=== PATIENT | female | born 1950 | race Caucasian/White ===

== ENCOUNTER 2016-09-12 15:43 | Inpatient (IN) | payer MEDICAID, OTHER ==
[~2016-09-12] VITALS: Ht 149.9 cm; Wt 51.0 kg
[~2016-09-12 15:43] MED LIST: BENA5TAB2 PO; COU5 PO; DIGO125T PO; DILT120C77 PO; FURO20TA3 PO; LANT3I SC
[2016-09-12] MEDS ORDERED: SOD CHLORIDE 0.9% 500 ML IV STA (16:06)
--- NOTE | 2016-09-12 16:08 | ERA ---
ER Documentation Chief Complaint Date/Time DATE: 09/12/16 TIME: 16:07 Chief Complaint WEAKNESS AND SOB FOR THE PAST FEW DAYS. NO CHEST PAIN. HPI This 66-year-old female presents that she has been weak and short of breath for 3 days. States that the weakness is generalized across her whole body with no focal weakness. She has had chest discomfort without actual pain. She has a history of A. fib and is on Eliquis and carvedilol which she has been taking regularly including today. Also notes that her sugars have been very high and difficult to control with the medication she has been on. ROS All systems reviewed and are negative except as per history of present illness. Medications Home Meds Active Scripts Digoxin* (Digoxin*) 0.125 Mg Tab, 0.125 MG PO DAILY@13 for 30 Days, TAB Prov:KATHERINE TERRY 11/12/13 Reported Medications [Basaglar Insulin] No Conflict Check, 22 UNIT SQ QHS 09/12/16 Apixaban* (Eliquis*) 5 Mg Tablet, 5 MG PO DAILY, TAB 09/12/16 Carvedilol* (Carvedilol*) 3.125 Mg Tablet, 3.125 MG PO DAILY, #60 TAB 09/12/16 Losartan Potassium* (Losartan Potassium*) 25 Mg Tablet, 25 MG PO DAILY, TAB 09/12/16 Sitagliptin* (Januvia*) 100 Mg Tablet, 100 MG PO DAILY, #30 TAB 09/12/16 Discontinued Reported Medications Insulin Glargine* (Lantus*) 100 Unit/Ml Soln, 20 UNIT SC HS, EA 11/10/13 Benazepril Hcl* (Benazepril Hcl*) 5 Mg Tablet, 5 MG PO DAILY, TAB 11/10/13 Furosemide* (Furosemide*) 20 Mg Tablet, 20 MG PO DAILY, TAB 11/10/13 Warfarin Sod (Coumadin) 5 Mg Tablet, 5 MG PO DAILY, TAB 11/10/13 Discontinued Scripts Diltiazem Hcl* (Cardizem CD*) 120 Mg Cap.sr.24h, 120 MG PO BID for 60 Days, CAP Prov:KATHERINE TERRY 11/12/13 Allergies Allergies: Coded Allergies: No Known Drug Allergies (Verified Allergy, Unknown, 09/12/16) PMhx/Soc History of Surgery: Yes (REMOVED GALLBLADDER) Anesthesia Reaction: No Hx Neurological Disorder: No Hx Respiratory Disorders: No Hx Cardiac Disorders: Yes (A FIB) Hx Psychiatric Problems: No Hx Miscellaneous Medical Probl: No Hx Alcohol Use: No Hx Substance Use: No Hx Tobacco Use: No Physical Exam Vitals Vital Signs Date Time Temp Pulse Resp B/P Pulse Ox O2 Delivery O2 Flow Rate FiO2 09/12/16 18:30 72 20 99/82 100 Room Air 09/12/16 17:52 61 16 83/65 98 Nasal Cannula 2.0 09/12/16 16:41 115 12 106/86 Nasal Cannula 2.0 09/12/16 16:05 Nasal Cannula 2 09/12/16 15:45 97.2 131 20 140/102 98 Physical Exam Const: [] Mild to moderate distress. Head: Atraumatic Eyes: Normal Conjunctiva ENT: Normal External Ears, Nose and Mouth. Neck: Full range of motion..~ No meningismus. Resp: Clear to auscultation bilaterally Cardio: Irregularly irregular market tachycardia, no murmurs Abd: Soft, non tender, non distended. Normal bowel sounds Skin: No petechiae or rashes Back: No midline or flank tenderness Ext: No cyanosis, or edema, distal pulses intact all 4 extremities Neur: Awake and alert and oriented 3, cranial nerves II through XII intact, no focal deficits Psych: Normal Mood and Affect Result Diagram: 09/12/16 1625 09/12/16 1625 Results 24 hrs Laboratory Tests Test 09/12/16 16:25 09/12/16 18:10 09/12/16 18:15 White Blood Count 9.010^3/ul Red Blood Count 4.3710^6/ul Hemoglobin 13.6g/dl Hematocrit 39.8% Mean Corpuscular Volume 91.1fl Mean Corpuscular Hemoglobin 31.1pg Mean Corpuscular Hemoglobin Concent 34.2g/dl Red Cell Distribution Width 13.0% Platelet Count 78631^3/UL Mean Platelet Volume 9.4fl Neutrophils % 71.9% Lymphocytes % 20.7% Monocytes % 4.6% Eosinophils % 1.8% Basophils % 0.6% Nucleated Red Blood Cells % 0.0/100WBC Neutrophils # 6.510^3/ul Lymphocytes # 1.910^3/ul Monocytes # 0.410^3/ul Eosinophils # 0.210^3/ul Basophils # 0.110^3/ul Nucleated Red Blood Cells # 0.010^3/ul Prothrombin Time 14.7Sec Prothrombin Time Ratio 1.1 INR International Normalized Ratio 1.15 Activated Partial Thromboplast Time 27.2Sec Sodium Level 141mmol/L Potassium Level 4.2mmol/L Chloride Level 96mmol/L Carbon Dioxide Level 28mmol/L Anion Gap 21 Blood Urea Nitrogen 16mg/dl Creatinine 0.80mg/dl Glucose Level 369mg/dl Calcium Level 9.6mg/dl Troponin I < 0.012ng/ml B-Type Natriuretic Peptide 819PG/ML Urine Color STRAW Urine Clarity CLEAR Urine pH 7.0 Urine Specific [place] 1.011 Urine Ketones NEGATIVEmg/dL Urine Nitrite NEGATIVEmg/dL Urine Bilirubin NEGATIVEmg/dL Urine Urobilinogen NEGATIVEmg/dL Urine Leukocyte Esterase NEGATIVELeu/ul Urine Hemoglobin NEGATIVEmg/dL Urine Glucose 3+mg/dL Urine Total Protein NEGATIVEmg/dl Bedside Urine pH (LAB) 7.0 Bedside Urine Protein (LAB) Negative Bedside Urine Glucose (UA) 0.50% Bedside Urine Ketones (LAB) Negative Bedside Urine Blood Negative Bedside Urine Nitrite (LAB) Negative Bedside Urine Leukocyte Esterase (L Negative Current Medications Medications (Trade) Dose Ordered Sig/[place] Route PRN Reason Start Time Stop Time Status Last Admin Dose Admin Sodium Chloride (NS) 500 ml @ 500 mls/hr Q1H STAT IV 09/12/16 16:06 09/12/16 17:05 DC 09/12/16 16:45 Diltiazem HCl (Cardizem Iv) 20 mg ONCE ONCE IV 09/12/16 16:30 09/12/16 16:31 DC 09/12/16 16:46 Metoprolol Tartrate (Lopressor) 5 mg ONCE ONCE IV 09/12/16 16:30 09/12/16 16:31 DC 09/12/16 16:46 Ondansetron HCl (Zofran Inj) 4 mg ER BRIDGE PRN IV NAUSEA AND/OR VOMITING 09/12/16 18:30 09/13/16 18:29 Acetaminophen 650 mg 650 mg ER BRIDGE PRN PO MILD PAIN/FEVER 09/12/16 18:30 09/13/16 18:29 Sodium Chloride (NS) 1,000 ml @ 1,000 mls/hr Q1H ONCE IV 09/12/16 18:30 09/12/16 19:29 DC 09/12/16 18:00 Metoprolol Tartrate (Lopressor) 5 mg Q4H PRN IV HR>110 Hold SBP<100 09/12/16 19:30 Metoprolol Tartrate (Lopressor) 25 mg BID PO 09/12/16 21:00 Digoxin (Digoxin) 0.125 mg DAILY@13 PO 09/13/16 13:00 Procedures/MDM A. fib with RVR in spite of appropriate medications and uncontrolled diabetic hyperglycemia. She was given normal saline as well as Cardizem and metoprolol IV. This controlled the patient's heart rate. She did have mild transient hypotension afterwards. Was given additional IV fluid and blood pressure stabilized. She was also given Zofran for nausea. She is being admitted to telemetry. I spoke with Dr. Campoverde will be admitting EKG interpretation: A. fib with RVR in 123, normal axis, no ST or T-wave changes concerning for acute ischemia. air sampling and monitoring interpretation: A. fib with RVR followed by rate controlled A. fib. No other arrhythmias Chest x-ray interpretation: I see no acute process. No infiltrate, no pulmonary edema, no pneumothorax, no fractures Critical care time 44 minutes: This includes treatment of unstable vital signs, A. fib with RVR, very careful fluid administration, use of vasoactive medications Cardizem and metoprolol IV, all visits patient's bedside to reassess cardio dynamic status, chart review, discussion with patient admitting doctor and family. This does not include billable procedures Departure Diagnosis: Primary Impression: Atrial fibrillation with RVR Additional Impressions: Acute weakness Uncontrolled diabetes mellitus with hyperglycemia Condition: Serious GENARO CURRY DO Sep 12, 2016 16:08
[2016-09-12] MEDS ORDERED: METOPROLOL 5 MG INJ IV ONE (16:30)
[2016-09-12] MEDS ORDERED: DILTIAZEM 25 MG INJ IV ONE (16:30)
[2016-09-12 16:33] LABS: ADD SCAN DIFF NO
[2016-09-12 16:36] LABS: BASOPHIL # 0.1 10^3/ul (0.0-0.1); BASOPHILS % 0.6 % (0.0-2.0); EOSINOPHILS # 0.2 10^3/ul (0.0-0.5); EOSINOPHILS % 1.8 % (0.0-7.0); HEMATOCRIT 39.8 % (37.0-47.0); HEMOGLOBIN 13.6 g/dl (12.0-16.0); LYMPHOCYTES # 1.9 10^3/ul (0.8-2.9); LYMPHOCYTES % 20.7 % (15.0-51.0); MEAN CORPUSCULAR HEMOGLOBIN 31.1 pg (29.0-33.0); MEAN CORPUSCULAR HGB CONC 34.2 g/dl (32.0-37.0); MEAN CORPUSCULAR VOLUME 91.1 fl (82.0-101.0); MEAN PLATELET VOLUME 9.4 fl (7.4-10.4); MONOCYTE # 0.4 10^3/ul (0.3-0.9); MONOCYTES % 4.6 % (0.0-11.0); NEUTROPHIL # 6.5 10^3/ul (1.6-7.5); NEUTROPHILS % 71.9 % (39.0-77.0); PLATELET COUNT 254 10^3/UL (140-415); RED BLOOD COUNT 4.37 10^6/ul (4.20-5.40)
--- NOTE | 2016-09-12 16:47 | RADRPT ---
PROCEDURE: Chest 1 views. CLINICAL INDICATION: Chest pain TECHNIQUE: AP views of the chest was obtained. COMPARISON: November 11, 2013 FINDINGS: The heart is large. The lungs are hyperexpanded. Subsegmental atelectasis is seen in the bilateral lower lobes. Chronic mild interstitial prominence is seen in both lungs. Osseous structures are in tact. IMPRESSION: Cardiomegaly . Hyperexpanded lungs with chronic mild interstitial prominence in both lungs. Findings could reflect COPD. Subsegmental atelectasis in the bilateral lower lobes RPTAT: AA .Asher Borges MD, Date Time Electronically viewed and signed by .Asher Borges MD, on 09/12/2016 16:47 .P/
[2016-09-12 16:51] LABS: INR 1.15; PROTIME 14.7 Sec (12.2-14.2); PT RATIO 1.1
[2016-09-12 16:52] LABS: PARTIAL THROMBOPLASTIN TIME 27.2 Sec (25.0-35.0)
[2016-09-12 16:54] LABS: ANION GAP 21 (8-16); BLOOD UREA NITROGEN 16 mg/dl (7-20); CALCIUM 9.6 mg/dl (8.4-10.2); CARBON DIOXIDE 28 mmol/L (21-31); CHLORIDE 96 mmol/L (97-110); GLUCOSE 369 mg/dl (70-220); POTASSIUM 4.2 mmol/L (3.5-5.1); SODIUM 141 mmol/L (135-144)
[2016-09-12 17:08] LABS: B-TYPE NATRIURETIC PEPTIDE 819 PG/ML (0-125)
[2016-09-12 17:26] LABS: TROPONIN-I < 0.012 ng/ml (0.00-0.12)
[2016-09-12] MEDS ORDERED: SITA100T8 PO (17:54)
[2016-09-12] MEDS ORDERED: LOSA25TA5 PO (17:55)
[2016-09-12] MEDS ORDERED: CARV3.1260 PO (17:55)
[2016-09-12] MEDS ORDERED: APIX5TAB PO (17:56)
[2016-09-12] MEDS ORDERED: BASAGLAR INSULIN SQ (17:57)
[2016-09-12 18:11] LABS: URINE BLOOD (Dip) POC Negative (NEGATIVE)
[2016-09-12 18:24] LABS: ADD UMIC NO; UR ASCORBIC ACID NEGATIVE (NEGATIVE); UR BILIRUBIN (Dip) NEGATIVE (NEGATIVE); UR BLOOD (Dip) NEGATIVE (NEGATIVE); UR CLARITY CLEAR (CLEAR); UR COLOR STRAW (YELLOW); UR GLUCOSE (Dip) 3+ mg/dL (NEGATIVE); UR KETONES (Dip) NEGATIVE (NEGATIVE); UR LEUKOCYTE ESTERASE (Dip) NEGATIVE Leu/ul (NEGATIVE); UR NITRITE (Dip) NEGATIVE (NEGATIVE); UR SPECIFIC GRAVITY (Dip) 1.011 (1.003-1.030); UR TOTAL PROTEIN (Dip) NEGATIVE (NEGATIVE); UR UROBILINOGEN (Dip) NEGATIVE (NEGATIVE)
[2016-09-12] MEDS ORDERED: ACETAMINOPHEN 325 MG TAB PO PRN (18:30)
[2016-09-12] MEDS ORDERED: SOD CHLORIDE 0.9% 1,000 ML IV ONE (18:30)
[2016-09-12] MEDS ORDERED: ONDANSETRON 4 MG INJ IV PRN (18:30)
[2016-09-12] MEDS ORDERED: METOPROLOL 5 MG INJ IV PRN (19:30)
[2016-09-12] MEDS: METOPROLOL 25 MG TAB PO SCH (21:00)
[2016-09-12] MEDS ORDERED: ACETAMINOPHEN 500 MG TAB PO PRN (23:30)
[2016-09-12 23:45] LABS: CK-MB 1.46 ng/ml (0.0-2.4); TROPONIN-I 0.016 ng/ml (0.00-0.12)
[2016-09-12] MEDS ORDERED: GLUCAGON 1 MG INJ IM PRN (23:45)
[2016-09-12] MEDS ORDERED: GLUCOSE GEL 15 GRAM TUBE BUCCAL PRN (23:45)
[2016-09-12] MEDS ORDERED: DEXTROSE 50% 50 ML SYRINGE IV PRN ×2 (23:45)
[2016-09-12] MEDS ORDERED: GLUCOSE GEL 15 GRAM TUBE PO PRN ×2 (23:45)
[2016-09-13] VITALS (10 sets, daily range): BP systolic 106–179; BP diastolic 68–115; PULSE 77–140; RESP 14–18; Ht 149.9 cm; Wt 51.0 kg
[2016-09-13] MEDS: APIXABAN 5 MG TABLET PO SCH ×3 (01:12→20:54)
[2016-09-13] MEDS: ACCU-CHEK XX SCH (01:39)
[2016-09-13] MEDS ORDERED: ACCU-CHEK XX SCH ×2 (02:00)
[2016-09-13 06:06] LABS: CALCIUM 9.2 mg/dl (8.4-10.2); CREATININE 0.6 mg/dl (0.44-1.00); POTASSIUM 3.8 mmol/L (3.5-5.1)
[2016-09-13 06:07] LABS: CHOL/HDL RATIO 3.4 RATIO
[2016-09-13 06:11] LABS: CREATINE KINASE 54 IU/L (23-200)
[2016-09-13 06:18] LABS: CK-MB 1.25 ng/ml (0.0-2.4)
[2016-09-13 06:44] LABS: TROPONIN-I < 0.012 ng/ml (0.00-0.12)
[2016-09-13] MEDS ORDERED: INSULIN GLARGINE [LANtus] 3 ML PEN SC SCH (08:00)
[2016-09-13] MEDS: METOPROLOL 25 MG TAB PO SCH ×2 (09:00→09:20)
[2016-09-13] MEDS ORDERED: LOSARTAN 25 MG TAB PO SCH ×2 (09:00→13:30)
[2016-09-13] MEDS ORDERED: NON-FORMULARY/PATIENT OWN MED (Sitagliptin* (Januvia*) 100 MG) PO SCH (09:00)
[2016-09-13] MEDS: INSULIN ASPART [NOVOLOG] 3 ML PEN SC SCH ×5 (09:19→20:54)
[2016-09-13] MEDS: LINAGLIPTIN 5 MG TABLET PO SCH (09:21)
[2016-09-13] MEDS: DIGOXIN 0.125 MG TAB PO SCH (13:15)
[2016-09-13] MEDS ORDERED: FUROSEMIDE 40 MG INJ IV SCH (13:30)
[2016-09-13] MEDS: FUROSEMIDE 40 MG INJ IV SCH (14:12)
--- NOTE | 2016-09-13 16:10 | CONS ---
Date/Time of Note Date/Time of Note DATE: 09/13/16 TIME: 16:05 Assessment/Plan Assessment/Plan Chief Complaint/Hosp Course IMP: 1.AF- with some recurrent RVR. Now improved on BB 2.abnl ecg-negative trop x 3 3.sob 4.DM with hyperglycemia 5.HTN 6.HL Recc: -Tele -serial ecg's -Continue BB -Give IVP digoxin additional and contnue po digoxin -Continue lasix and follow volume status -Will f/u echo -losartan as tolerted only -ongoing adjustment of insulin therapy -Continue eliqus Problems: Consultation Date/Type/Reason Admit Date/Time Sep 12, 2016 at 18:08 Initial Consult Date 09/12/2016 Type of Consultation: cardiology Reason for Consultation AF Referring Provider: NIGHAT HALE MD Exam/Review of Systems Vital Signs Vitals Vital Signs Date Time Temp Pulse Resp B/P Pulse Ox O2 Delivery O2 Flow Rate FiO2 09/13/16 16:01 91 09/13/16 15:30 18 116/77 09/13/16 11:57 98.6 Room Air 09/13/16 11:19 100 09/13/16 06:03 2.0 Intake and Output 09/12/16 09/12/16 09/13/16 15:00 23:00 07:00 Intake Total 500 ml Balance 500 ml Exam Review of Systems: CONSTITUTIONAL: No fevers, chills. PULMONARY: No sob CARDIOVASCULAR: No chest pain/palpitations GASTROINTESTINAL: No nausea/vomiting. GENITOURINARY: No hematuria/dysuria. MUSCULOSKELETAL: No myagias/arthalgias. PSYCHIATRIC: The patient denies depression. NEUROLOGIC: No weakness Constitutional: alert Psych: no complaints Head: normocephalic ENMT: mucosa pink and moist Neck: jvd (8 cm water), supple Respiratory: diminished breath sounds Cardiovascular: irregular rhythm Gastrointestinal: non-tender, soft Musculoskeletal: muscle tone (normal) Extremities: edema (none) Neurological: other (No focal deficits) Results Result Diagram: 09/12/16 1625 09/13/16 0526 Results 24 hrs Laboratory Tests Test 09/12/16 16:25 09/12/16 16:50 09/12/16 18:10 09/12/16 18:15 White Blood Count 9.0 Red Blood Count 4.37 Hemoglobin 13.6 Hematocrit 39.8 Mean Corpuscular Volume 91.1 Mean Corpuscular Hemoglobin 31.1 Mean Corpuscular Hemoglobin Concent 34.2 Red Cell Distribution Width 13.0 Platelet Count 254 Mean Platelet Volume 9.4 Neutrophils % 71.9 Lymphocytes % 20.7 Monocytes % 4.6 Eosinophils % 1.8 Basophils % 0.6 Nucleated Red Blood Cells % 0.0 Neutrophils # 6.5 Lymphocytes # 1.9 Monocytes # 0.4 Eosinophils # 0.2 Basophils # 0.1 Nucleated Red Blood Cells # 0.0 Prothrombin Time 14.7 H Prothrombin Time Ratio 1.1 INR International Normalized Ratio 1.15 Activated Partial Thromboplast Time 27.2 Sodium Level 141 Potassium Level 4.2 Chloride Level 96 L Carbon Dioxide Level 28 Anion Gap 21 H Blood Urea Nitrogen 16 Creatinine 0.80 Glucose Level 369 H Calcium Level 9.6 Troponin I < 0.012 B-Type Natriuretic Peptide 819 H Thyroid Stimulating Hormone (TSH) 1.880 Digoxin Level < 0.4 L Urine Color STRAW Urine Clarity CLEAR Urine pH 7.0 Urine Specific [place] 1.011 Urine Ketones NEGATIVE Urine Nitrite NEGATIVE Urine Bilirubin NEGATIVE Urine Urobilinogen NEGATIVE Urine Leukocyte Esterase NEGATIVE Urine Hemoglobin NEGATIVE Urine Glucose 3+ H Urine Total Protein NEGATIVE Bedside Urine pH (LAB) 7.0 Bedside Urine Protein (LAB) Negative Bedside Urine Glucose (UA) 0.50% H Bedside Urine Ketones (LAB) Negative Bedside Urine Blood Negative Bedside Urine Nitrite (LAB) Negative Bedside Urine Leukocyte Esterase (L Negative Test 09/12/16 23:04 09/13/16 01:19 09/13/16 05:26 09/13/16 09:15 Creatine Kinase 93 54 Creatine Kinase Index 1.6 2.3 Creatinine Kinase MB (Mass) 1.46 1.25 Troponin I 0.016 < 0.012 Bedside Glucose 303 H 187 Sodium Level 141 Potassium Level 3.8 Chloride Level 100 Carbon Dioxide Level 29 Anion Gap 16 Blood Urea Nitrogen 13 Creatinine 0.60 Glucose Level 205 # Hemoglobin A1c 11.4 H Calcium Level 9.2 Triglycerides Level 79 Cholesterol Level 128 LDL Cholesterol, Calculated 75 HDL Cholesterol 37 Cholesterol/HDL Ratio 3.4 Test 09/13/16 12:35 Bedside Glucose 160 Medications Medications Current Medications Metoprolol Tartrate (Lopressor) 5 mg Q4H PRN IV HR>110 Hold SBP<100 Last administered on 09/13/16t 15:32; Admin Dose 5 MG; Start 09/12/16 at 19:30 Metoprolol Tartrate (Lopressor) 25 mg BID PO ; Start 09/12/16 at 21:00 Digoxin (Digoxin) 0.125 mg DAILY@13 PO Last administered on 09/13/16 13:15; Admin Dose 0.125 MG; Start 09/13/16 at 13:00 Insulin Glargine (Lantus) 25 unit DAILY@08 SC Last administered on 09/13/16 08 :28; Admin Dose 25 UNIT; Start 09/13/16 at 08:00 Diagnostic Test (Pha) (Accu-Chek) 1 ea 02 XX Last administered on 09/13/16 01: 39; Admin Dose 1 EA; Start 09/13/16 at 02:00 Acetaminophen (Tylenol Tab) 500 mg Q6 PRN PO pain; Start 09/12/16 at 23:30 Apixaban (Eliquis) 2.5 mg BID PO Last administered on 09/13/16 01:12; Admin Dose 2.5 MG; Start 09/13/16 at 00:00 Losartan Potassium (Cozaar) 25 mg DAILY PO Last administered on 09/13/16 09:20 ; Admin Dose 25 MG; Start 09/13/16 at 09:00 Miscellaneous Information 1 ea NOTE XX ; Start 09/12/16 at 23:45 Glucose (Glutose) 15 gm Q15M PRN PO DECREASED GLUCOSE; Start 09/12/16 at 23:45 Glucose (Glutose) 22.5 gm Q15M PRN PO DECREASED GLUCOSE; Start 09/12/16 at 23: 45 Dextrose (D50w Syringe) 25 ml Q15M PRN IV DECREASED GLUCOSE; Start 09/12/16 at 23:45 Dextrose (D50w Syringe) 50 ml Q15M PRN IV DECREASED GLUCOSE; Start 09/12/16 at 23:45 Glucagon (Glucagen) 1 mg Q15M PRN IM DECREASED GLUCOSE; Start 09/12/16 at 23:45 Glucose (Glutose) 15 gm Q15M PRN BUCCAL DECREASED GLUCOSE; Start 09/12/16 at 23 :45 Linagliptin (Tradjenta) 5 mg DAILY PO Last administered on 09/13/16 09:21; Admin Dose 5 MG; Start 09/13/16 at 09:00 Atorvastatin Calcium (Lipitor) 10 mg HS PO ; Start 09/13/16 at 21:00 Furosemide (Lasix) 20 mg DAILY IV Last administered on 09/13/16t 14:12; Admin Dose 20 MG; Start 09/13/16 at 13:30 CALISTA ORELLANA Sep 13, 2016 16:10
--- NOTE | 2016-09-13 17:14 | RADRPT ---
Echocardiogram Report ADDENDUM Patient Name: VERNELL BRENNER Gender: Female Date: 1950 Study Date: 13-Sep-2016 [employer] Operator: Matt Au RDCS Location: ER9 Ref. Physician: CALISTA DESAI Quality: Adequate Procedures: Transthoracic echocardiogram with complete 2D, M-Mode, and doppler examination. Indications: Congestive Heart Failure. 2D/M Mode Doppler Measurement Value Normal Ranges Measurement Value Normal Ranges LVIDd 2D 3.8 3.5 - 5.6 cm AMI Vmax 1.7 cm2 LVIDs 2D 2.5 2.1 - 4.1 cm AMI VTI 1.7 cm2 LVPWd 2D 0.8 0.6 - 1.1 cm AV Peak Oniel 1.3 m/sec IVSd 2D 0.9 0.6 - 1.1 cm AV Peak PG 6.7 mmHg AoR Diam 2D 2.2 2.0 - 3.7 cm AI Peak PG 99.5 mmHg EDV 2D 63.5 cm3 AI Peak Oniel 5.0 m/sec ESV 2D 15.0 cm3 AI PHT 461.5 msec LA Dimen 2D 3.9 2.3 - 4.0 cm LVOT Peak Oniel 0.7 m/sec LVOT Diam 2.0 cm LVOT Peak PG 1.9 mmHg MV PHT 173.7 msec MV Peak Oniel 2.6 m/sec MV Peak PG 27.3 mmHg MV Mean Oniel 1.7 m/sec MV Mean PG 12.8 mmHg MV PHT 173.7 msec MV VTI 70.1 cm MVA PHT 1.3 cm2 TR Peak Oniel 3.6 m/sec TR Peak PG 51.2 mmHg RVSP 54.0 mmHg Findings Left Ventricle: Normal left ventricular cavity size. Normal left ventricular wall thickness. Moderate global left ventricular systolic dysfunction. Ejection fraction is visually estimated at 35 %. Tissue Doppler/Mitral Doppler indices are indeterminate in this study due to the presence of atrial fibrillation. Right Ventricle: Normal right ventricular size. Normal right ventricular systolic function. Left Atrium: The left atrium is normal in size. Right Atrium: The right atrium is normal in size. Mitral Valve: Moderate mitral leaflet calcification. Moderate mitral annular calcification. Trace mitral regurgitation. Moderate mitral stenosis. Mitral valve Max Velocity 2.61 m/sec. MaxPG 27.30 mmHg. MeanPG 12.80 mmHg. Mitral Valve Area by PHT1.30 cm2. Aortic Valve: No hemodynamically significant aortic stenosis by doppler. Aortic cusps appear mildly calcified. Mild aortic valve regurgitation. Tricuspid Valve: Normal appearance of the tricuspid valve. Estimated peak PA systolic pressure 54 mmHg. There is mild tricuspid regurgitation. Pulmonic Valve: Normal pulmonic valve appearance. There is mild pulmonic regurgitation. Pericardium: Normal pericardium with no significant pericardial effusion. Aorta: Normal aortic root. IVC: Normal size and no respiratory collapse consistent with elevated right atrial pressure. Conclusions Normal left ventricular cavity size. Normal left ventricular wall thickness. Moderate global left ventricular systolic dysfunction. Ejection fraction is visually estimated at 35-40 %. Tissue Doppler/Mitral Doppler indices are indeterminate in this study due to the presence of atrial fibrillation. Moderate mitral leaflet calcification. Moderate mitral annular calcification. trace to mild mitral regurgitation. Moderate mitral stenosis. MeanPG 12.80 mmHg. Mitral Valve Area by PHT1.30 cm2. Possibly s/p prior repair. Mild aortic valve regurgitation. Estimated peak PA systolic pressure 54 mmHg. There is mild tricuspid regurgitation. There is mild pulmonic regurgitation. Electronically Signed By: Calista Desai 14-Sep-2016 15:41:59 -0700 [ADDENDUM] Patient Name: VERNELL BRENNER Study Date: 13-Sep-2016 [id number]
[2016-09-13] MEDS: DIGOXIN 500 MCG INJ IV SCH ×2 (17:25→23:26)
--- NOTE | 2016-09-13 17:37 | RADRPT ---
Vent Rate: 100 bpm RR Interval: 0 msec [place] Interval: 0 msec QRS Duration: 90 msec QT Interval: 350 msec QTC Interval: 451 msec P-R-T [place]: 0 - 71 - 68 degrees Atrial fibrillation Minimal voltage criteria for LVH, may be normal variant Nonspecific ST and T wave abnormality , probably digitalis effect Abnormal ECG Electronically Signed By: Akash Desai [id number]
[2016-09-13] MEDS: ATENOLOL 25 MG TAB PO SCH (20:53)
[2016-09-13] MEDS: ATORVASTATIN 10 MG TAB PO SCH (20:53)
[2016-09-14] VITALS (14 sets, daily range): BP systolic 80–122; BP diastolic 54–74; PULSE 60–112; RESP 15–19
[2016-09-14] MEDS: ACCU-CHEK XX SCH ×2 (02:00→23:18)
[2016-09-14] MEDS ORDERED: ACCU-CHEK XX SCH ×2 (02:00)
--- NOTE | 2016-09-14 03:43 | HP ---
DATE OF ADMISSION: 09/12/2016 CHIEF COMPLAINT: Shortness of breath. Denies weakness. HISTORY OF PRESENT ILLNESS: The patient is a 66-year-old female with history of cardiomyopathy with EF of 35-40 percent back in October 2013. The patient also history of chronic AFib, hypertension, diabetes, and dyslipidemia. The patient for the last couple of weeks has been experiencing increasing weakness and shortness of breath. Interestingly, daughter Nate reported that the symptoms were on and off but got worse in past 24 hours. The patient also noticed right leg edema. Denies any chest pain. The patient's blood sugars had also been running high and at home she reported the blood sugar was 466 and subsequently came down to 360. The patient did not have any polyuria or polydipsia. No reported headache or syncope. Patient did not have orthopnea, but did develop increasing shortness of breath with mild activities. The patient did not have any fever or chills, no paroxysmal nocturnal dyspnea, no vomiting or diarrhea. No report of bleeding of any site. The rest of the review of systems unremarkable. PAST SURGICAL HISTORY: The patient is status post cholecystectomy. FAMILY HISTORY: Father with history of diabetes. SOCIAL HISTORY: No smoking. No alcohol. PHYSICAL EXAMINATION: GENERAL APPEARANCE: Patient conscious, awake, alert and breathing comfortably at rest. VITAL SIGNS: Blood pressure 140/102, respirations 20, pulse 131, temperature 97.2, pulse ox 98 percent. HEENT: Atraumatic, normocephalic. Nonicteric. TMs normal. Oropharynx clear. NECK: Supple. No masses or thyromegaly. Neck veins are engorged. CHEST: Chest tube with diminished air entry at bases. No use of accessory muscles. CV: Irregularly regular rhythm. Variable S1. No murmur, gallop or rub. ABDOMEN: Soft, nontender. EXTREMITIES: Trace edema. No clubbing, cyanosis. NEUROLOGIC: The patient is awake, alert, fairly oriented, with no gross focal deficit. LAB DATA: Reviewed. IMPRESSION: 1. Atrial fibrillation with rapid ventricular response. 2. Cardiomyopathy. 3. Hypertension. 4. Diabetes out of control. 5. Dyslipidemia. PLAN: Patient admitted on telemetry floor. Patient will be started on beta sd and digoxin and the patient's blood pressure subsequently dropped to low 100. The patient will be started on pre-meal insulin as well as Lantus and will continue to optimize diabetic care. Will start LIDIA inhibitor and diuretics as tolerated. The patient will be started on Eliquis for chronic AFib. Cardiac consult from Dr. Desai has been obtained. Plan of care discussed with patient's daughter Nate and [id number] Geovanna. Further recommendations depending on patient's hospital course. Dictated By: Dane Campoverde MD /joo/ /Document#: [id number]
[2016-09-14 08:04] LABS: CALCIUM 9.5 mg/dl (8.4-10.2); CREATININE 0.89 mg/dl (0.44-1.00); POTASSIUM 3.9 mmol/L (3.5-5.1)
[2016-09-14] MEDS: ATENOLOL 25 MG TAB PO SCH ×2 (09:00→21:00)
[2016-09-14] MEDS: LOSARTAN 25 MG TAB PO SCH (09:00)
[2016-09-14] MEDS: INSULIN ASPART [NOVOLOG] 3 ML PEN SC SCH ×7 (09:19→20:40)
[2016-09-14] MEDS: FUROSEMIDE 40 MG INJ IV SCH (09:24)
[2016-09-14] MEDS: LINAGLIPTIN 5 MG TABLET PO SCH (09:25)
[2016-09-14] MEDS: APIXABAN 5 MG TABLET PO SCH ×2 (09:27→21:12)
[2016-09-14] MEDS: INSULIN GLARGINE [LANtus] 3 ML PEN SC SCH (09:30)
[2016-09-14] MEDS ORDERED: REGADENOSON 0.4 MG/5 ML SYG ONE (12:08)
--- NOTE | 2016-09-14 12:30 | CONS ---
Date/Time of Note Date/Time of Note DATE: 09/14/16 TIME: 12:26 Assessment/Plan Assessment/Plan Chief Complaint/Hosp Course IMP: 1.AF- with some recurrent RVR. Now improved on BB 2.abnl ecg-negative trop x 3 3.sob 4.DM with hyperglycemia 5.HTN-currently bordeerBiocontrol hotn with holding of BB 6.HL 7.Cardiomyopathy with low ef by echo this admit Recc: -Tele -serial ecg's -Continue BB as tolerated only -Contnue po digoxin -Hold lasix and follow volume status given low BP -losartan as tolerted only -ongoing adjustment of insulin therapy -Continue eliqus -lexiscan stress test today Problems: Consultation Date/Type/Reason Admit Date/Time Sep 12, 2016 at 18:08 Initial Consult Date 09/12/2016 Type of Consultation: cardiology Reason for Consultation cardiomyopathy/AF Referring Provider: NIGHAT HALE MD Exam/Review of Systems Vital Signs Vitals Vital Signs Date Time Temp Pulse Resp B/P Pulse Ox O2 Delivery O2 Flow Rate FiO2 09/14/16 11:33 97.8 85 18 80/58 100 09/14/16 00:00 Room Air 09/13/16 06:03 2.0 Intake and Output 09/13/16 09/13/16 09/14/16 15:00 23:00 07:00 Intake Total 240 ml 120 ml Balance 240 ml 120 ml Exam Review of Systems: CONSTITUTIONAL: No fevers, chills. PULMONARY: No sob CARDIOVASCULAR: No chest pain/palpitations GASTROINTESTINAL: No nausea/vomiting. GENITOURINARY: No hematuria/dysuria. MUSCULOSKELETAL: No myagias/arthalgias. PSYCHIATRIC: The patient denies depression. NEUROLOGIC: MIld generalized weakness Constitutional: alert Psych: no complaints Head: normocephalic ENMT: mucosa pink and moist Neck: jvd (8-9 cm water), supple Respiratory: diminished breath sounds (at bases/B) Cardiovascular: irregular rhythm Gastrointestinal: non-tender, soft Musculoskeletal: muscle weakness (mild generalized) Extremities: edema (none) Neurological: other (no focal deficits) Results Result Diagram: 09/12/16 1625 09/14/16 0706 Results 24 hrs Laboratory Tests Test 09/13/16 12:35 09/13/16 17:15 09/13/16 20:46 09/14/16 07:06 Bedside Glucose 160 354 H 102 Sodium Level 142 Potassium Level 3.9 Chloride Level 98 Carbon Dioxide Level 29 Anion Gap 19 H Blood Urea Nitrogen 18 Creatinine 0.89 Glucose Level 178 Calcium Level 9.5 Test 09/14/16 08:30 Bedside Glucose 196 Medications Medications Current Medications Metoprolol Tartrate (Lopressor) 5 mg Q4H PRN IV HR>110 Hold SBP<100 Last administered on 09/13/16 15:32; Admin Dose 5 MG; Start 09/12/16 at 19:30 Digoxin (Digoxin) 0.125 mg DAILY@13 PO Last administered on 09/13/16 13:15; Admin Dose 0.125 MG; Start 09/13/16 at 13:00 Diagnostic Test (Pha) (Accu-Chek) 1 ea 02 XX Last administered on 09/13/16 01: 39; Admin Dose 1 EA; Start 09/13/16 at 02:00 Acetaminophen (Tylenol Tab) 500 mg Q6 PRN PO pain Last administered on 20:54; Admin Dose 500 MG; Start 09/12/16 at 23:30 Apixaban (Eliquis) 2.5 mg BID PO Last administered on 09/14/16 09:27; Admin Dose 2.5 MG; Start 09/13/16 at 00:00 Miscellaneous Information 1 ea NOTE XX ; Start 09/12/16 at 23:45 Glucose (Glutose) 15 gm Q15M PRN PO DECREASED GLUCOSE; Start 09/12/16 at 23:45 Glucose (Glutose) 22.5 gm Q15M PRN PO DECREASED GLUCOSE; Start 09/12/16 at 23: 45 Dextrose (D50w Syringe) 25 ml Q15M PRN IV DECREASED GLUCOSE; Start 09/12/16 at 23:45 Dextrose (D50w Syringe) 50 ml Q15M PRN IV DECREASED GLUCOSE; Start 09/12/16 at 23:45 Glucagon (Glucagen) 1 mg Q15M PRN IM DECREASED GLUCOSE; Start 09/12/16 at 23:45 Glucose (Glutose) 15 gm Q15M PRN BUCCAL DECREASED GLUCOSE; Start 09/12/16 at 23 :45 Linagliptin (Tradjenta) 5 mg DAILY PO Last administered on 09/14/16 09:25; Admin Dose 5 MG; Start 09/13/16 at 09:00 Atorvastatin Calcium (Lipitor) 10 mg HS PO Last administered on 09/13/16 20:53 ; Admin Dose 10 MG; Start 09/13/16 at 21:00 Furosemide (Lasix) 20 mg DAILY IV Last administered on 09/14/16 09:24; Admin Dose 20 MG; Start 09/13/16 at 13:30 Losartan Potassium (Cozaar) 12.5 mg DAILY PO ; Start 09/14/16 at 09:00 Atenolol (Tenormin) 25 mg BID PO Last administered on 09/13/16 20:53; Admin Dose 25 MG; Start 09/13/16 at 21:00 Insulin Glargine (Lantus) 30 unit DAILY@08 SC Last administered on 09/14/16 09 :30; Admin Dose 30 UNIT; Start 09/14/16 at 08:00 CALISTA ORELLANA Sep 14, 2016 12:29
[2016-09-14] MEDS: DIGOXIN 0.125 MG TAB PO SCH (13:56)
--- NOTE | 2016-09-14 13:57 | RADRPT ---
PROCEDURE: Lexiscan myocardial perfusion study CLINICAL INDICATION: 66 -year-old patient complaining of chest pain. TECHNIQUE: Lexiscan 0.4 mg intravenously separate acquisition gated myocardial perfusion SPECT usi ng Tc 99m Myoview 29.4 mCi intravenously at stress and Tc-99m Myoview, 9.1 mCi intravenously at rest was performed using the rest/stress sequence. Poststress Myoview SPECT images were obtained in the supine position. COMPARISON: No prior studies. FINDINGS: Perfusion images reveal no evidence of perfusion defects. Lexiscan post stress gated SPECT images demonstrate mild hypokinesis of the left ventricle. IMPRESSION: 1. No evidence of perfusion defects. 2. Mild hypokinesis of the left ventricle. 3. The left ventricle ejection fraction at stress is 47%. A call report was made to Dr. Desai at 01:56 p.m. on September 14, 2016. RPTAT: HH .Shanita Hollingsworth MD, MD Date Time Electronically viewed and signed by .Shanita Hollingsworth MD, on 09/14/2016 13:56 .L/
--- NOTE | 2016-09-14 14:54 | RADRPT ---
PROCEDURE: XR Chest. CLINICAL INDICATION: CHF TECHNIQUE: A single AP view of the chest was obtained. COMPARISON: None. FINDINGS: No focal airspace opacification, pleural effusion or pneumothorax is seen. The cardiomediastinal si lhouette is mildly enlarged. Calcifications are seen within the aortic arch. The osseous structure s are unremarkable. IMPRESSION: 1. Interval radiographic resolution of pulmonary vascular congestion. 2. Mild cardiomegaly and aortic atherosclerosis. RPTAT: HH .Debra Quispe MD, Date Time Electronically viewed and signed by .Debra Quispe MD, on 09/14/2016 14:53 .G/
--- NOTE | 2016-09-14 18:19 | PN ---
Date/Time of Note Date/Time of Note DATE: 09/14/16 TIME: 18:13 Assessment/Plan VTE Prophylaxis VTE Prophylaxis Intervention: SCD's Lines/Catheters IV [facility]ter Type (from [facility]): Saline Lock Urinary Cath still in place: No Assessment/Plan Chief Complaint/Hosp Course Patient denies any chest pain denies shortness of breath, status post Lexiscan today, continues to be in atrial fibrillation with variable rates. Problems: Assessment/Plan -Rule out acute coronary syndrome, patient status post Lexiscan today. Dr. Desai is following and cardiology consultation. - Atrial fibrillation with rapid ventricular response. Continue Eliquis digoxin and metoprolol. Continue telemetry monitoring. - Cardiomyopathy with ejection fraction of 35% - Hypertension. - Poorly controlled diabetes mellitus. Hemoglobin A1c is 11.4. Diabetes education is requested. Continue Tradjenta Lantus and NovoLog - Dyslipidemia. Continue Lipitor. Further recommendations based on clinical course. Plan of care discussed with Dr. Campoverde Exam/Review of Systems Vital Signs Vitals Vital Signs Date Time Temp Pulse Resp B/P Pulse Ox O2 Delivery O2 Flow Rate FiO2 09/14/16 16:16 93 09/14/16 15:28 97.8 18 108/54 97 09/14/16 00:00 Room Air 09/13/16 06:03 2.0 Intake and Output 09/13/16 09/13/16 09/14/16 15:00 23:00 07:00 Intake Total 240 ml 120 ml Balance 240 ml 120 ml Exam Constitutional: alert, oriented Head: normocephalic Neck: non-tender, supple Respiratory: normal air movement Cardiovascular: irregular rhythm Gastrointestinal: non-tender, soft Extremities: normal pulses Neurological: nl mental status Results Result Diagram: 09/12/16 1625 09/14/16 0706 Results 24 hrs Laboratory Tests Test 09/13/16 20:46 09/14/16 07:06 09/14/16 08:30 09/14/16 13:57 Bedside Glucose 102 196 143 Sodium Level 142 Potassium Level 3.9 Chloride Level 98 Carbon Dioxide Level 29 Anion Gap 19 H Blood Urea Nitrogen 18 Creatinine 0.89 Glucose Level 178 Calcium Level 9.5 Test 09/14/16 17:45 Bedside Glucose 223 H Medications Medications Current Medications Metoprolol Tartrate (Lopressor) 5 mg Q4H PRN IV HR>110 Hold SBP<100 Last administered on 09/13/16 15:32; Admin Dose 5 MG; Start 09/12/16 at 19:30 Digoxin (Digoxin) 0.125 mg DAILY@13 PO Last administered on 09/14/16 13:56; Admin Dose 0.125 MG; Start 09/13/16 at 13:00 Diagnostic Test (Pha) (Accu-Chek) 1 ea 02 XX Last administered on 09/13/16 01: 39; Admin Dose 1 EA; Start 09/13/16 at 02:00 Acetaminophen (Tylenol Tab) 500 mg Q6 PRN PO pain Last administered on 20:54; Admin Dose 500 MG; Start 09/12/16 at 23:30 Apixaban (Eliquis) 2.5 mg BID PO Last administered on 09/14/16 09:27; Admin Dose 2.5 MG; Start 09/13/16 at 00:00 Miscellaneous Information 1 ea NOTE XX ; Start 09/12/16 at 23:45 Glucose (Glutose) 15 gm Q15M PRN PO DECREASED GLUCOSE; Start 09/12/16 at 23:45 Glucose (Glutose) 22.5 gm Q15M PRN PO DECREASED GLUCOSE; Start 09/12/16 at 23: 45 Dextrose (D50w Syringe) 25 ml Q15M PRN IV DECREASED GLUCOSE; Start 09/12/16 at 23:45 Dextrose (D50w Syringe) 50 ml Q15M PRN IV DECREASED GLUCOSE; Start 09/12/16 at 23:45 Glucagon (Glucagen) 1 mg Q15M PRN IM DECREASED GLUCOSE; Start 09/12/16 at 23:45 Glucose (Glutose) 15 gm Q15M PRN BUCCAL DECREASED GLUCOSE; Start 09/12/16 at 23 :45 Linagliptin (Tradjenta) 5 mg DAILY PO Last administered on 09/14/16 09:25; Admin Dose 5 MG; Start 09/13/16 at 09:00 Atorvastatin Calcium (Lipitor) 10 mg HS PO Last administered on 09/13/16 20:53 ; Admin Dose 10 MG; Start 09/13/16 at 21:00 Furosemide (Lasix) 20 mg DAILY IV Last administered on 09/14/16 09:24; Admin Dose 20 MG; Start 09/13/16 at 13:30; Status Future Hold Losartan Potassium (Cozaar) 12.5 mg DAILY PO ; Start 09/14/16 at 09:00 Insulin Glargine (Lantus) 30 unit DAILY@08 SC Last administered on 09/14/16t 09 :30; Admin Dose 30 UNIT; Start 09/14/16 at 08:00 Atenolol (Tenormin) 12.5 mg BID PO ; Start 09/14/16 at 21:00 RAMSEY EDEN Sep 14, 2016 18:18
[2016-09-14] MEDS ORDERED: SOD CHLORIDE 0.9% 500 ML IV ONE (21:00)
[2016-09-14] MEDS: ATORVASTATIN 10 MG TAB PO SCH (21:12)
[2016-09-15] VITALS (12 sets, daily range): BP systolic 93–126; BP diastolic 56–67; PULSE 75–92; RESP 16–20
[2016-09-15] MEDS: INSULIN ASPART [NOVOLOG] 3 ML PEN SC SCH ×7 (08:00→21:28)
[2016-09-15] MEDS: INSULIN GLARGINE [LANtus] 3 ML PEN SC SCH (08:04)
[2016-09-15] MEDS: APIXABAN 5 MG TABLET PO SCH ×2 (08:31→21:26)
[2016-09-15] MEDS: LOSARTAN 25 MG TAB PO SCH (08:31)
[2016-09-15] MEDS: ATENOLOL 25 MG TAB PO SCH ×2 (08:32→21:00)
[2016-09-15 08:33] LABS: ADD SCAN DIFF NO
[2016-09-15] MEDS: LINAGLIPTIN 5 MG TABLET PO SCH (08:33)
[2016-09-15 08:42] LABS: BASOPHIL # 0.1 10^3/ul (0.0-0.1); BASOPHILS % 0.7 % (0.0-2.0); EOSINOPHILS # 0.3 10^3/ul (0.0-0.5); EOSINOPHILS % 2.7 % (0.0-7.0); HEMATOCRIT 45.5 % (37.0-47.0); LYMPHOCYTES # 2.2 10^3/ul (0.8-2.9); LYMPHOCYTES % 24.1 % (15.0-51.0); MEAN CORPUSCULAR HEMOGLOBIN 30.4 pg (29.0-33.0); MEAN CORPUSCULAR VOLUME 92.1 fl (82.0-101.0); MEAN PLATELET VOLUME 9.7 fl (7.4-10.4); MONOCYTE # 0.7 10^3/ul (0.3-0.9); MONOCYTES % 7.1 % (0.0-11.0); PLATELET COUNT 277 10^3/UL (140-415); RED BLOOD COUNT 4.94 10^6/ul (4.20-5.40); RED CELL DISTRIBUTION WIDTH 13.1 % (11.5-14.5); WHITE BLOOD COUNT 9.2 10^3/ul (4.8-10.8)
[2016-09-15 09:23] LABS: CALCIUM 9.2 mg/dl (8.4-10.2); CREATININE 0.87 mg/dl (0.44-1.00); POTASSIUM 3.9 mmol/L (3.5-5.1)
--- NOTE | 2016-09-15 11:22 | CARRPT ---
DATE OF PROCEDURE: 09/14/2016 PROCEDURE PERFORMED: Lexiscan Cardiolite stress test, electrocardiogram portion. INDICATION: Cardiomyopathy, decreased left ventricular ejection fraction, abnormal electrocardiogram, assess for ischemia. Baseline vital signs electrocardiogram: Blood pressure 94/64, pulse 84. Electrocardiogram revealed atrial fibrillation at a rate of 81 with normal axis, normal intervals and diffuse nonspecific ST and T-wave abnormalities. PROCEDURE: Patient Lexiscan infusion for 10 seconds followed by radiotracer. Patient's test was stopped due to completion of protocol. Maximal achieved blood pressure during the test of 94/66. Maximal achieved heart rate during the test, 122. FINDINGS: Patient did not develop any new Lexiscan-induced anterior ST or T-wave change from baseline abnormalities. No documented PVCs. SYMPTOMS: Patient had no complaints of chest pain or shortness of breath during stress testing. IMPRESSION: 1. No Lexiscan-induced ST or T-wave changes from baseline abnormalities to diagnosis cardiac ischemia. 2. No complaints of chest pain or shortness of breath during stress testing. 3. No documented premature ventricular contractions during stress test. 4. Report of nuclear images to follow in a separate dictation. Dictated By: Jeanine Boyce /joo/alireza /Document#: [id number] CC: Dane Campoverde MD;*[facility]*
[2016-09-15] MEDS: DIGOXIN 0.125 MG TAB PO SCH (12:48)
--- NOTE | 2016-09-15 13:31 | PN ---
Date/Time of Note Date/Time of Note DATE: 09/15/16 TIME: 13:23 Assessment/Plan VTE Prophylaxis VTE Prophylaxis Intervention: other Lines/Catheters [facility] Saline Lock Urinary Cath still in place: No Assessment/Plan Assessment/Plan 1. Atrial fibrillation with rapid ventricular response. -Per cardiology -Continue Eliquis for chronic AFib. -Continue to monitor on telemetry floor 2. Cardiomyopathy. 3. Hypertension. -Continue LIDIA inhibitor , beta-sd, diuretic 4. Diabetes out of control. -Glycemic control 5. Dyslipidemia. Further recommendations depending on patient's hospital course. Plan of care discussed with Dr. Campoverde, staff Subjective 24 Hr Interval Summary Free Text/Dictation Patient is sitting up in the bed. Afebrile ,denies any chest pain, shortness of breath, dizziness, headache, palpitations, abdominal pain nausea vomiting. Continue to monitor on telemetry floor showing A. fib controlled rate of 82. Discussed with staff Respiratory: no complaints Cardiovascular: no complaints Gastrointestinal: no complaints Musculoskeletal: no complaints Exam/Review of Systems Vital Signs Vitals Vital Signs Date Time Temp Pulse Resp B/P Pulse Ox O2 Delivery O2 Flow Rate FiO2 09/15/16 12:14 92 09/15/16 12:07 98.7 16 94/67 100 09/14/16 00:00 Room Air 09/13/16 06:03 2.0 Intake and Output 09/14/16 09/14/16 09/15/16 14:59 22:59 06:59 Intake Total 420 ml 250 ml Balance 420 ml 250 ml Exam Constitutional: alert, well developed Respiratory: clear to auscultation, normal air movement Cardiovascular: nl pulses, other (A. fib controlled. Heart rate 82) Gastrointestinal: non-tender, soft Musculoskeletal: nl extremities to inspection Extremities: normal pulses Neurological: nl mental status, nl speech Results Result Diagram: 09/15/16 0713 09/15/16 0713 Results 24 hrs Laboratory Tests Test 09/14/16 13:57 09/14/16 17:45 09/14/16 20:34 09/15/16 07:13 Bedside Glucose 143 223 H 109 White Blood Count 9.2 Red Blood Count 4.94 Hemoglobin 15.0 Hematocrit 45.5 Mean Corpuscular Volume 92.1 Mean Corpuscular Hemoglobin 30.4 Mean Corpuscular Hemoglobin Concent 33.0 Red Cell Distribution Width 13.1 Platelet Count 277 Mean Platelet Volume 9.7 Neutrophils % 65.0 Lymphocytes % 24.1 Monocytes % 7.1 Eosinophils % 2.7 Basophils % 0.7 Nucleated Red Blood Cells % 0.0 Neutrophils # 6.0 Lymphocytes # 2.2 Monocytes # 0.7 Eosinophils # 0.3 Basophils # 0.1 Nucleated Red Blood Cells # 0.0 Sodium Level 144 Potassium Level 3.9 Chloride Level 101 Carbon Dioxide Level 29 Anion Gap 18 H Blood Urea Nitrogen 20 Creatinine 0.87 Glucose Level 123 # Calcium Level 9.2 Test 09/15/16 07:59 09/15/16 12:10 Bedside Glucose 126 188 Medications Medications Current Medications Metoprolol Tartrate (Lopressor) 5 mg Q4H PRN IV HR>110 Hold SBP<100 Last administered on 09/13/16 15:32; Admin Dose 5 MG; Start 09/12/16 at 19:30 Digoxin (Digoxin) 0.125 mg DAILY@13 PO Last administered on 09/15/16 12:48; Admin Dose 0.125 MG; Start 09/13/16 at 13:00 Diagnostic Test (Pha) (Accu-Chek) 1 ea 02 XX Last administered on 09/13/16 01: 39; Admin Dose 1 EA; Start 09/13/16 at 02:00 Acetaminophen (Tylenol Tab) 500 mg Q6 PRN PO pain Last administered on 20:54; Admin Dose 500 MG; Start 09/12/16 at 23:30 Apixaban (Eliquis) 2.5 mg BID PO Last administered on 09/15/16 08:31; Admin Dose 2.5 MG; Start 09/13/16 at 00:00 Miscellaneous Information 1 ea NOTE XX ; Start 09/12/16 at 23:45 Glucose (Glutose) 15 gm Q15M PRN PO DECREASED GLUCOSE; Start 09/12/16 at 23:45 Glucose (Glutose) 22.5 gm Q15M PRN PO DECREASED GLUCOSE; Start 09/12/16 at 23: 45 Dextrose (D50w Syringe) 25 ml Q15M PRN IV DECREASED GLUCOSE; Start 09/12/16 at 23:45 Dextrose (D50w Syringe) 50 ml Q15M PRN IV DECREASED GLUCOSE; Start 09/12/16 at 23:45 Glucagon (Glucagen) 1 mg Q15M PRN IM DECREASED GLUCOSE; Start 09/12/16 at 23:45 Glucose (Glutose) 15 gm Q15M PRN BUCCAL DECREASED GLUCOSE; Start 09/12/16 at 23 :45 Linagliptin (Tradjenta) 5 mg DAILY PO Last administered on 09/15/16 08:33; Admin Dose 5 MG; Start 09/13/16 at 09:00 Atorvastatin Calcium (Lipitor) 10 mg HS PO Last administered on 09/14/16 21:12 ; Admin Dose 10 MG; Start 09/13/16 at 21:00 Furosemide (Lasix) 20 mg DAILY IV Last administered on 09/14/16 09:24; Admin Dose 20 MG; Start 09/13/16 at 13:30; Status Future Hold Losartan Potassium (Cozaar) 12.5 mg DAILY PO Last administered on 09/15/16 08: 31; Admin Dose 12.5 MG; Start 09/14/16 at 09:00 Insulin Glargine (Lantus) 30 unit DAILY@08 SC Last administered on 09/15/16 08 :04; Admin Dose 30 UNIT; Start 09/14/16 at 08:00 Atenolol (Tenormin) 12.5 mg BID PO Last administered on 09/15/16 08:32; Admin Dose 12.5 MG; Start 09/14/16 at 21:00 GOPI MCFADDEN Sep 15, 2016 13:30
--- NOTE | 2016-09-15 18:25 | CONS ---
Date/Time of Note Date/Time of Note DATE: 09/15/16 TIME: 18:22 Assessment/Plan Assessment/Plan Chief Complaint/Hosp Course IMP: 1.AF- with some recurrent RVR. Now improved on BB 2.abnl ecg-negative trop x 3 3.sob 4.DM with hyperglycemia 5.HTN-currently [place] hotn with holding of BB 6.HL 7.Cardiomyopathy with low ef by echo this admit Recc: -Tele -serial ecg's -Continue BB as tolerated only -Contnue po digoxin and will give additional IVP digoxin dose -Hold lasix and follow volume status given low BP -losartan as tolerted only -ongoing adjustment of insulin therapy -Continue eliqus Problems: Consultation Date/Type/Reason Admit Date/Time Sep 12, 2016 at 18:08 Initial Consult Date 09/12/2016 Type of Consultation: cardiology Reason for Consultation AF Referring Provider: NIGHAT HALE MD Exam/Review of Systems Vital Signs Vitals Vital Signs Date Time Temp Pulse Resp B/P Pulse Ox O2 Delivery O2 Flow Rate FiO2 09/15/16 16:24 90 09/15/16 15:52 98.1 16 106/65 98 09/14/16 00:00 Room Air 09/13/16 06:03 2.0 Intake and Output 09/14/16 09/14/16 09/15/16 15:00 23:00 07:00 Intake Total 420 ml 250 ml Balance 420 ml 250 ml Exam Review of Systems: CONSTITUTIONAL: No fevers, chills. PULMONARY: No sob CARDIOVASCULAR: No chest pain/palpitations GASTROINTESTINAL: No nausea/vomiting. GENITOURINARY: No hematuria/dysuria. MUSCULOSKELETAL: No myagias/arthalgias. PSYCHIATRIC: The patient denies depression. NEUROLOGIC: No weakness Constitutional: alert Head: normocephalic ENMT: mucosa pink and moist Neck: jvd (9 cm water), supple Respiratory: diminished breath sounds (at bases/B) Cardiovascular: irregular rhythm Gastrointestinal: non-tender, soft Musculoskeletal: muscle tone (normal) Extremities: edema (none) Neurological: other (No focal deficits) Results Result Diagram: 09/15/16 0713 09/15/16 0713 Results 24 hrs Laboratory Tests Test 09/14/16 20:34 09/15/16 07:13 09/15/16 07:59 09/15/16 12:10 Bedside Glucose 109 126 188 White Blood Count 9.2 Red Blood Count 4.94 Hemoglobin 15.0 Hematocrit 45.5 Mean Corpuscular Volume 92.1 Mean Corpuscular Hemoglobin 30.4 Mean Corpuscular Hemoglobin Concent 33.0 Red Cell Distribution Width 13.1 Platelet Count 277 Mean Platelet Volume 9.7 Neutrophils % 65.0 Lymphocytes % 24.1 Monocytes % 7.1 Eosinophils % 2.7 Basophils % 0.7 Nucleated Red Blood Cells % 0.0 Neutrophils # 6.0 Lymphocytes # 2.2 Monocytes # 0.7 Eosinophils # 0.3 Basophils # 0.1 Nucleated Red Blood Cells # 0.0 Sodium Level 144 Potassium Level 3.9 Chloride Level 101 Carbon Dioxide Level 29 Anion Gap 18 H Blood Urea Nitrogen 20 Creatinine 0.87 Glucose Level 123 # Calcium Level 9.2 Test 09/15/16 17:10 Bedside Glucose 193 Medications Medications Current Medications Metoprolol Tartrate (Lopressor) 5 mg Q4H PRN IV HR>110 Hold SBP<100 Last administered on 09/13/16 15:32; Admin Dose 5 MG; Start 09/12/16 at 19:30 Digoxin (Digoxin) 0.125 mg DAILY@13 PO Last administered on 09/15/16 12:48; Admin Dose 0.125 MG; Start 09/13/16 at 13:00 Diagnostic Test (Pha) (Accu-Chek) 1 ea 02 XX Last administered on 09/13/16 01: 39; Admin Dose 1 EA; Start 09/13/16 at 02:00 Acetaminophen (Tylenol Tab) 500 mg Q6 PRN PO pain Last administered on 20:54; Admin Dose 500 MG; Start 09/12/16 at 23:30 Apixaban (Eliquis) 2.5 mg BID PO Last administered on 09/15/16 08:31; Admin Dose 2.5 MG; Start 09/13/16 at 00:00 Miscellaneous Information 1 ea NOTE XX ; Start 09/12/16 at 23:45 Glucose (Glutose) 15 gm Q15M PRN PO DECREASED GLUCOSE; Start 09/12/16 at 23:45 Glucose (Glutose) 22.5 gm Q15M PRN PO DECREASED GLUCOSE; Start 09/12/16 at 23: 45 Dextrose (D50w Syringe) 25 ml Q15M PRN IV DECREASED GLUCOSE; Start 09/12/16 at 23:45 Dextrose (D50w Syringe) 50 ml Q15M PRN IV DECREASED GLUCOSE; Start 09/12/16 at 23:45 Glucagon (Glucagen) 1 mg Q15M PRN IM DECREASED GLUCOSE; Start 09/12/16 at 23:45 Glucose (Glutose) 15 gm Q15M PRN BUCCAL DECREASED GLUCOSE; Start 09/12/16 at 23 :45 Linagliptin (Tradjenta) 5 mg DAILY PO Last administered on 09/15/16 08:33; Admin Dose 5 MG; Start 09/13/16 at 09:00 Atorvastatin Calcium (Lipitor) 10 mg HS PO Last administered on 09/14/16 21:12 ; Admin Dose 10 MG; Start 09/13/16 at 21:00 Furosemide (Lasix) 20 mg DAILY IV Last administered on 09/14/16 09:24; Admin Dose 20 MG; Start 09/13/16 at 13:30; Status Future Hold Losartan Potassium (Cozaar) 12.5 mg DAILY PO Last administered on 09/15/16 08: 31; Admin Dose 12.5 MG; Start 09/14/16 at 09:00 Insulin Glargine (Lantus) 30 unit DAILY@08 SC Last administered on 09/15/16 08 :04; Admin Dose 30 UNIT; Start 09/14/16 at 08:00 Atenolol (Tenormin) 12.5 mg BID PO Last administered on 09/15/16 08:32; Admin Dose 12.5 MG; Start 09/14/16 at 21:00 CALISTA ORELLANA Sep 15, 2016 18:24
[2016-09-15] MEDS ORDERED: DIGOXIN 500 MCG INJ IV ONE (18:30)
[2016-09-15] MEDS: ATORVASTATIN 10 MG TAB PO SCH (21:25)
[2016-09-16] VITALS (12 sets, daily range): BP systolic 91–123; BP diastolic 60–86; PULSE 69–90; RESP 16–20
[2016-09-16] MEDS: ACCU-CHEK XX SCH (02:00)
[2016-09-16] MEDS: INSULIN ASPART [NOVOLOG] 3 ML PEN SC SCH ×7 (08:32→21:00)
[2016-09-16] MEDS: INSULIN GLARGINE [LANtus] 3 ML PEN SC SCH (08:33)
[2016-09-16 08:40] LABS: ADD SCAN DIFF NO
[2016-09-16 08:46] LABS: BASOPHIL # 0.1 10^3/ul (0.0-0.1); BASOPHILS % 0.8 % (0.0-2.0); EOSINOPHILS # 0.3 10^3/ul (0.0-0.5); EOSINOPHILS % 2.7 % (0.0-7.0); HEMATOCRIT 45.9 % (37.0-47.0); HEMOGLOBIN 15.3 g/dl (12.0-16.0); LYMPHOCYTES # 2.6 10^3/ul (0.8-2.9); LYMPHOCYTES % 27.7 % (15.0-51.0); MEAN CORPUSCULAR HEMOGLOBIN 30.1 pg (29.0-33.0); MEAN CORPUSCULAR HGB CONC 33.3 g/dl (32.0-37.0); MEAN CORPUSCULAR VOLUME 90.2 fl (82.0-101.0); MEAN PLATELET VOLUME 9.5 fl (7.4-10.4); MONOCYTE # 0.7 10^3/ul (0.3-0.9); MONOCYTES % 7.8 % (0.0-11.0); NEUTROPHIL # 5.8 10^3/ul (1.6-7.5); NEUTROPHILS % 60.7 % (39.0-77.0); PLATELET COUNT 292 10^3/UL (140-415); RED BLOOD COUNT 5.09 10^6/ul (4.20-5.40); WHITE BLOOD COUNT 9.5 10^3/ul (4.8-10.8)
[2016-09-16] MEDS: LOSARTAN 25 MG TAB PO SCH (08:50)
[2016-09-16] MEDS: LINAGLIPTIN 5 MG TABLET PO SCH (08:51)
[2016-09-16] MEDS: APIXABAN 5 MG TABLET PO SCH ×2 (08:51→20:55)
[2016-09-16] MEDS: ATENOLOL 25 MG TAB PO SCH ×2 (08:51→20:56)
[2016-09-16 09:14] LABS: CALCIUM 9.7 mg/dl (8.4-10.2); CREATININE 0.73 mg/dl (0.44-1.00)
[2016-09-16] MEDS: DIGOXIN 0.125 MG TAB PO SCH (14:20)
--- NOTE | 2016-09-16 15:54 | PN ---
Date/Time of Note Date/Time of Note DATE: 09/16/16 TIME: 15:50 Assessment/Plan VTE Prophylaxis VTE Prophylaxis Intervention: SCD's Lines/Catheters IV Catheter Type (from [facility]): Saline Lock Urinary Cath still in place: No Assessment/Plan Chief Complaint/Hosp Course Patient's continues in atrial fibrillation rate is better controlled, continue to monitor on telemetry floor. Patient still has a fluctuation in blood sugar, continue to monitor. Assessment/Plan -Acute coronary syndrome ruled out, Lexiscan with no ischemia. Dr. Desai is following and cardiology consultation. - Atrial fibrillation with rapid ventricular response. Continue Eliquis digoxin and metoprolol. Continue telemetry monitoring. - Cardiomyopathy with ejection fraction of 35% - Hypertension. - Poorly controlled diabetes mellitus. Hemoglobin A1c is 11.4. Continue Tradjenta, Lantus, pre-meal NovoLog as well as NovoLog per mild algorithm sliding scale. - Dyslipidemia. Continue Lipitor. Further recommendations based on clinical course. Plan of care discussed with Dr. Campoverde Problems: Exam/Review of Systems Vital Signs Vitals Vital Signs Date Time Temp Pulse Resp B/P Pulse Ox O2 Delivery O2 Flow Rate FiO2 09/16/16 12:09 80 09/16/16 04:05 98.3 98/61 09/16/16 00:02 20 99 09/14/16 00:00 Room Air 09/13/16 06:03 2.0 Intake and Output 09/15/16 09/15/16 09/16/16 15:00 23:00 07:00 Intake Total 880 ml 500 ml Output Total 2 ml Balance 880 ml 498 ml Exam Constitutional: alert, oriented Head: normocephalic Neck: non-tender, supple Respiratory: normal air movement Cardiovascular: irregular rhythm Gastrointestinal: non-tender, soft Extremities: normal pulses Neurological: nl mental status Results Result Diagram: 09/16/16 0750 09/16/16 0750 Results 24 hrs Laboratory Tests Test 09/15/16 17:10 09/15/16 21:12 09/16/16 07:50 09/16/16 08:28 Bedside Glucose 193 237 H 193 White Blood Count 9.5 Red Blood Count 5.09 Hemoglobin 15.3 Hematocrit 45.9 Mean Corpuscular Volume 90.2 Mean Corpuscular Hemoglobin 30.1 Mean Corpuscular Hemoglobin Concent 33.3 Red Cell Distribution Width 13.0 Platelet Count 292 Mean Platelet Volume 9.5 Neutrophils % 60.7 Lymphocytes % 27.7 Monocytes % 7.8 Eosinophils % 2.7 Basophils % 0.8 Neutrophils # 5.8 Lymphocytes # 2.6 Monocytes # 0.7 Eosinophils # 0.3 Basophils # 0.1 Nucleated Red Blood Cells # 0.0 Sodium Level 144 Potassium Level 4.0 Chloride Level 100 Carbon Dioxide Level 28 Anion Gap 20 H Blood Urea Nitrogen 16 Creatinine 0.73 Glucose Level 176 Calcium Level 9.7 Test 09/16/16 12:34 Bedside Glucose 132 Medications Medications Current Medications Metoprolol Tartrate (Lopressor) 5 mg Q4H PRN IV HR>110 Hold SBP<100 Last administered on 09/13/16 15:32; Admin Dose 5 MG; Start 09/12/16 at 19:30 Digoxin (Digoxin) 0.125 mg DAILY@13 PO Last administered on 09/16/16 14:20; Admin Dose 0.125 MG; Start 09/13/16 at 13:00 Diagnostic Test (Pha) (Accu-Chek) 1 ea 02 XX Last administered on 09/13/16 01: 39; Admin Dose 1 EA; Start 09/13/16 at 02:00 Acetaminophen (Tylenol Tab) 500 mg Q6 PRN PO pain Last administered on 20:54; Admin Dose 500 MG; Start 09/12/16 at 23:30 Apixaban (Eliquis) 2.5 mg BID PO Last administered on 09/16/16 08:51; Admin Dose 2.5 MG; Start 09/13/16 at 00:00 Miscellaneous Information 1 ea NOTE XX ; Start 09/12/16 at 23:45 Glucose (Glutose) 15 gm Q15M PRN PO DECREASED GLUCOSE; Start 09/12/16 at 23:45 Glucose (Glutose) 22.5 gm Q15M PRN PO DECREASED GLUCOSE; Start 09/12/16 at 23: 45 Dextrose (D50w Syringe) 25 ml Q15M PRN IV DECREASED GLUCOSE; Start 09/12/16 at 23:45 Dextrose (D50w Syringe) 50 ml Q15M PRN IV DECREASED GLUCOSE; Start 09/12/16 at 23:45 Glucagon (Glucagen) 1 mg Q15M PRN IM DECREASED GLUCOSE; Start 09/12/16 at 23:45 Glucose (Glutose) 15 gm Q15M PRN BUCCAL DECREASED GLUCOSE; Start 09/12/16 at 23 :45 Linagliptin (Tradjenta) 5 mg DAILY PO Last administered on 09/16/16 08:51; Admin Dose 5 MG; Start 09/13/16 at 09:00 Atorvastatin Calcium (Lipitor) 10 mg HS PO Last administered on 09/15/16 21:25 ; Admin Dose 10 MG; Start 09/13/16 at 21:00 Furosemide (Lasix) 20 mg DAILY IV Last administered on 09/14/16 09:24; Admin Dose 20 MG; Start 09/13/16 at 13:30; Status Future Hold Losartan Potassium (Cozaar) 12.5 mg DAILY PO Last administered on 09/15/16 08: 31; Admin Dose 12.5 MG; Start 09/14/16 at 09:00 Insulin Glargine (Lantus) 30 unit DAILY@08 SC Last administered on 09/16/16 08 :33; Admin Dose 30 UNIT; Start 09/14/16 at 08:00 Atenolol (Tenormin) 12.5 mg BID PO Last administered on 09/15/16 08:32; Admin Dose 12.5 MG; Start 09/14/16 at 21:00 RAMSEY EDEN Sep 16, 2016 15:54
--- NOTE | 2016-09-16 18:05 | CONS ---
Date/Time of Note Date/Time of Note DATE: 09/16/16 TIME: 18:03 Assessment/Plan Assessment/Plan Chief Complaint/Hosp Course IMP: 1.AF- with some recurrent RVR when BB is held. 2.abnl ecg-negative trop x 3 3.sob 4.DM with hyperglycemia 5.HTN-currently labile with episodes of boderline hotn 6.HL 7.Cardiomyopathy with low ef by echo this admit Recc: -Tele -serial ecg's -Continue BB as tolerated only -Contnue po digoxin -Hold lasix and follow volume status given low BP -losartan as tolerted only -ongoing adjustment of insulin therapy -Continue eliqus Problems: Consultation Date/Type/Reason Admit Date/Time Sep 12, 2016 at 18:08 Initial Consult Date 09/12/2016 Type of Consultation: cardiology Reason for Consultation AF/cardiomyopathy Referring Provider: NIGHAT HALE MD Exam/Review of Systems Vital Signs Vitals Vital Signs Date Time Temp Pulse Resp B/P Pulse Ox O2 Delivery O2 Flow Rate FiO2 09/16/16 16:00 88 09/16/16 12:00 98.3 91/65 100 Room Air 09/16/16 08:00 18 09/13/16 06:03 2.0 Intake and Output 09/15/16 09/15/16 09/16/16 15:00 23:00 07:00 Intake Total 880 ml 500 ml Output Total 2 ml Balance 880 ml 498 ml Exam Review of Systems: CONSTITUTIONAL: No fevers, chills. PULMONARY: No sob CARDIOVASCULAR: No chest pain/palpitations GASTROINTESTINAL: No nausea/vomiting. GENITOURINARY: No hematuria/dysuria. MUSCULOSKELETAL: No myagias/arthalgias. PSYCHIATRIC: The patient denies depression. NEUROLOGIC: No weakness Constitutional: alert Psych: no complaints Head: normocephalic ENMT: mucosa pink and moist Neck: jvd (9 cm water), supple Respiratory: clear to auscultation Cardiovascular: irregular rhythm Gastrointestinal: non-tender, soft Musculoskeletal: muscle tone (normal) Extremities: edema (none) Neurological: other (No focal deficits) Results Result Diagram: 09/16/16 0750 09/16/16 0750 Results 24 hrs Laboratory Tests Test 09/15/16 21:12 09/16/16 07:50 09/16/16 08:28 09/16/16 12:34 Bedside Glucose 237 H 193 132 White Blood Count 9.5 Red Blood Count 5.09 Hemoglobin 15.3 Hematocrit 45.9 Mean Corpuscular Volume 90.2 Mean Corpuscular Hemoglobin 30.1 Mean Corpuscular Hemoglobin Concent 33.3 Red Cell Distribution Width 13.0 Platelet Count 292 Mean Platelet Volume 9.5 Neutrophils % 60.7 Lymphocytes % 27.7 Monocytes % 7.8 Eosinophils % 2.7 Basophils % 0.8 Neutrophils # 5.8 Lymphocytes # 2.6 Monocytes # 0.7 Eosinophils # 0.3 Basophils # 0.1 Nucleated Red Blood Cells # 0.0 Sodium Level 144 Potassium Level 4.0 Chloride Level 100 Carbon Dioxide Level 28 Anion Gap 20 H Blood Urea Nitrogen 16 Creatinine 0.73 Glucose Level 176 Calcium Level 9.7 Test 09/16/16 17:44 Bedside Glucose 147 Medications Medications Current Medications Metoprolol Tartrate (Lopressor) 5 mg Q4H PRN IV HR>110 Hold SBP<100 Last administered on 09/13/16 15:32; Admin Dose 5 MG; Start 09/12/16 at 19:30 Digoxin (Digoxin) 0.125 mg DAILY@13 PO Last administered on 09/16/16 14:20; Admin Dose 0.125 MG; Start 09/13/16 at 13:00 Diagnostic Test (Pha) (Accu-Chek) 1 ea 02 XX Last administered on 09/13/16 01: 39; Admin Dose 1 EA; Start 09/13/16 at 02:00 Acetaminophen (Tylenol Tab) 500 mg Q6 PRN PO pain Last administered on 20:54; Admin Dose 500 MG; Start 09/12/16 at 23:30 Apixaban (Eliquis) 2.5 mg BID PO Last administered on 09/16/16 08:51; Admin Dose 2.5 MG; Start 09/13/16 at 00:00 Miscellaneous Information 1 ea NOTE XX ; Start 09/12/16 at 23:45 Glucose (Glutose) 15 gm Q15M PRN PO DECREASED GLUCOSE; Start 09/12/16 at 23:45 Glucose (Glutose) 22.5 gm Q15M PRN PO DECREASED GLUCOSE; Start 09/12/16 at 23: 45 Dextrose (D50w Syringe) 25 ml Q15M PRN IV DECREASED GLUCOSE; Start 09/12/16 at 23:45 Dextrose (D50w Syringe) 50 ml Q15M PRN IV DECREASED GLUCOSE; Start 09/12/16 at 23:45 Glucagon (Glucagen) 1 mg Q15M PRN IM DECREASED GLUCOSE; Start 09/12/16 at 23:45 Glucose (Glutose) 15 gm Q15M PRN BUCCAL DECREASED GLUCOSE; Start 09/12/16 at 23 :45 Linagliptin (Tradjenta) 5 mg DAILY PO Last administered on 09/16/16 08:51; Admin Dose 5 MG; Start 09/13/16 at 09:00 Atorvastatin Calcium (Lipitor) 10 mg HS PO Last administered on 09/15/16 21:25 ; Admin Dose 10 MG; Start 09/13/16 at 21:00 Furosemide (Lasix) 20 mg DAILY IV Last administered on 09/14/16 09:24; Admin Dose 20 MG; Start 09/13/16 at 13:30; Status Future Hold Losartan Potassium (Cozaar) 12.5 mg DAILY PO Last administered on 09/15/16 08: 31; Admin Dose 12.5 MG; Start 09/14/16 at 09:00 Insulin Glargine (Lantus) 30 unit DAILY@08 SC Last administered on 09/16/16 08 :33; Admin Dose 30 UNIT; Start 09/14/16 at 08:00 Atenolol (Tenormin) 12.5 mg BID PO Last administered on 09/15/16 08:32; Admin Dose 12.5 MG; Start 09/14/16 at 21:00 CALISTA ORELLANA Sep 16, 2016 18:05
[2016-09-16] MEDS ORDERED: DIGOXIN 500 MCG INJ IV ONE (18:30)
[2016-09-16] MEDS: ATORVASTATIN 10 MG TAB PO SCH (20:56)
[2016-09-17] VITALS (11 sets, daily range): BP systolic 83–121; BP diastolic 54–75; PULSE 59–98; RESP 16
[2016-09-17] MEDS: ACCU-CHEK XX SCH (02:00)
[2016-09-17 08:39] LABS: BASOPHIL # 0.1 10^3/ul (0.0-0.1); BASOPHILS % 0.8 % (0.0-2.0); EOSINOPHILS # 0.3 10^3/ul (0.0-0.5); EOSINOPHILS % 2.7 % (0.0-7.0); HEMOGLOBIN 15.1 g/dl (12.0-16.0); LYMPHOCYTES # 3.1 10^3/ul (0.8-2.9); LYMPHOCYTES % 27.4 % (15.0-51.0); MEAN CORPUSCULAR HEMOGLOBIN 30.2 pg (29.0-33.0); MEAN CORPUSCULAR HGB CONC 32.8 g/dl (32.0-37.0); MEAN PLATELET VOLUME 9.7 fl (7.4-10.4); MONOCYTE # 0.9 10^3/ul (0.3-0.9); MONOCYTES % 7.9 % (0.0-11.0); NEUTROPHIL # 6.8 10^3/ul (1.6-7.5); NEUTROPHILS % 60.9 % (39.0-77.0); PLATELET COUNT 306 10^3/UL (140-415); RED CELL DISTRIBUTION WIDTH 13.2 % (11.5-14.5); WHITE BLOOD COUNT 11.2 10^3/ul (4.8-10.8)
[2016-09-17 08:57] LABS: CALCIUM 9.8 mg/dl (8.4-10.2); CREATININE 0.78 mg/dl (0.44-1.00); POTASSIUM 4.1 mmol/L (3.5-5.1)
[2016-09-17] MEDS: ATENOLOL 25 MG TAB PO SCH ×2 (09:00→20:45)
[2016-09-17] MEDS: LOSARTAN 25 MG TAB PO SCH (09:00)
[2016-09-17] MEDS: INSULIN GLARGINE [LANtus] 3 ML PEN SC SCH (09:03)
[2016-09-17] MEDS: INSULIN ASPART [NOVOLOG] 3 ML PEN SC SCH ×7 (09:05→20:48)
[2016-09-17] MEDS: APIXABAN 5 MG TABLET PO SCH ×2 (09:15→20:44)
[2016-09-17] MEDS: LINAGLIPTIN 5 MG TABLET PO SCH (09:15)
[2016-09-17] MEDS: DIGOXIN 0.125 MG TAB PO SCH (12:59)
--- NOTE | 2016-09-17 13:55 | CONS ---
Date/Time of Note Date/Time of Note DATE: 09/17/16 TIME: 13:53 Assessment/Plan Assessment/Plan Additional Assessment/Plan Atrial fibrillation with RVR Cardiomyopathy Hypertension Diabetes Continue atenolol and digoxin Continue Eliquis Continue Losartan Continue Insulin Consultation Date/Type/Reason Admit Date/Time Sep 12, 2016 at 18:08 Respiratory: no complaints Cardiovascular: no complaints Gastrointestinal: no complaints Musculoskeletal: no complaints Psychological: no complaints Social History Smoking Status: Never smoker Exam/Review of Systems Vital Signs Vitals Vital Signs Date Time Temp Pulse Resp B/P Pulse Ox O2 Delivery O2 Flow Rate FiO2 09/17/16 12:20 98 09/17/16 04:32 97.9 16 95/59 95 09/16/16 19:14 Room Air Intake and Output 09/16/16 09/16/16 09/17/16 15:00 23:00 07:00 Intake Total 750 ml 400 ml Output Total 3 ml Balance 747 ml 400 ml Exam Constitutional: alert Head: atraumatic, normocephalic Neck: non-tender, supple Respiratory: clear to auscultation Cardiovascular: irregular rhythm Gastrointestinal: nl liver, spleen, non-tender, soft Extremities: normal pulses Results Result Diagram: 09/17/16 0656 09/17/16 0656 Results 24 hrs Laboratory Tests Test 09/16/16 17:44 09/16/16 21:00 09/17/16 06:56 09/17/16 09:00 Bedside Glucose 147 168 161 White Blood Count 11.2 H Red Blood Count 5.00 Hemoglobin 15.1 Hematocrit 46.0 Mean Corpuscular Volume 92.0 Mean Corpuscular Hemoglobin 30.2 Mean Corpuscular Hemoglobin Concent 32.8 Red Cell Distribution Width 13.2 Platelet Count 306 Mean Platelet Volume 9.7 Neutrophils % 60.9 Lymphocytes % 27.4 Monocytes % 7.9 Eosinophils % 2.7 Basophils % 0.8 Nucleated Red Blood Cells % 0.0 Neutrophils # 6.8 Lymphocytes # 3.1 H Monocytes # 0.9 Eosinophils # 0.3 Basophils # 0.1 Nucleated Red Blood Cells # 0.0 Sodium Level 142 Potassium Level 4.1 Chloride Level 96 L Carbon Dioxide Level 30 Anion Gap 20 H Blood Urea Nitrogen 20 Creatinine 0.78 Glucose Level 148 Calcium Level 9.8 Test 09/17/16 12:42 Bedside Glucose 128 Medications Medications Current Medications Metoprolol Tartrate (Lopressor) 5 mg Q4H PRN IV HR>110 Hold SBP<100 Last administered on 09/13/16 15:32; Admin Dose 5 MG; Start 09/12/16 at 19:30 Digoxin (Digoxin) 0.125 mg DAILY@13 PO Last administered on 09/17/16 12:59; Admin Dose 0.125 MG; Start 09/13/16 at 13:00 Diagnostic Test (Pha) (Accu-Chek) 1 ea 02 XX Last administered on 09/13/16 01: 39; Admin Dose 1 EA; Start 09/13/16 at 02:00 Acetaminophen (Tylenol Tab) 500 mg Q6 PRN PO pain Last administered on 20:54; Admin Dose 500 MG; Start 09/12/16 at 23:30 Apixaban (Eliquis) 2.5 mg BID PO Last administered on 09/17/16 09:15; Admin Dose 2.5 MG; Start 09/13/16 at 00:00 Miscellaneous Information 1 ea NOTE XX ; Start 09/12/16 at 23:45 Glucose (Glutose) 15 gm Q15M PRN PO DECREASED GLUCOSE; Start 09/12/16 at 23:45 Glucose (Glutose) 22.5 gm Q15M PRN PO DECREASED GLUCOSE; Start 09/12/16 at 23: 45 Dextrose (D50w Syringe) 25 ml Q15M PRN IV DECREASED GLUCOSE; Start 09/12/16 at 23:45 Dextrose (D50w Syringe) 50 ml Q15M PRN IV DECREASED GLUCOSE; Start 09/12/16 at 23:45 Glucagon (Glucagen) 1 mg Q15M PRN IM DECREASED GLUCOSE; Start 09/12/16 at 23:45 Glucose (Glutose) 15 gm Q15M PRN BUCCAL DECREASED GLUCOSE; Start 09/12/16 at 23 :45 Linagliptin (Tradjenta) 5 mg DAILY PO Last administered on 09/17/16 09:15; Admin Dose 5 MG; Start 09/13/16 at 09:00 Atorvastatin Calcium (Lipitor) 10 mg HS PO Last administered on 09/16/16 20:56 ; Admin Dose 10 MG; Start 09/13/16 at 21:00 Furosemide (Lasix) 20 mg DAILY IV Last administered on 09/14/16 09:24; Admin Dose 20 MG; Start 09/13/16 at 13:30; Status Future Hold Losartan Potassium (Cozaar) 12.5 mg DAILY PO Last administered on 09/15/16 08: 31; Admin Dose 12.5 MG; Start 09/14/16 at 09:00 Insulin Glargine (Lantus) 30 unit DAILY@08 SC Last administered on 09/17/16 09 :03; Admin Dose 30 UNIT; Start 09/14/16 at 08:00 Atenolol (Tenormin) 12.5 mg BID PO Last administered on 09/16/16 20:56; Admin Dose 12.5 MG; Start 09/14/16 at 21:00 THERESA DENTON M.D. Sep 17, 2016 13:55
--- NOTE | 2016-09-17 15:35 | PN ---
Date/Time of Note Date/Time of Note DATE: 09/17/16 TIME: 15:33 Assessment/Plan VTE Prophylaxis VTE Prophylaxis Intervention: other Lines/Catheters [facility] Saline Lock Urinary Cath still in place: No Assessment/Plan Assessment/Plan Patient's continues in atrial fibrillation rate is better controlled, continue to monitor on telemetry floor. Patient still has a fluctuation in blood sugar, continue to monitor. -Acute coronary syndrome ruled out, Lexiscan with no ischemia. Dr. Desai is following and cardiology consultation. - Atrial fibrillation with rapid ventricular response. Continue Eliquis digoxin and metoprolol. Continue telemetry monitoring. - Cardiomyopathy with ejection fraction of 35% - Hypertension. - Poorly controlled diabetes mellitus. Hemoglobin A1c is 11.4. Continue Tradjenta, Lantus, pre-meal NovoLog as well as NovoLog per mild algorithm sliding scale. - Dyslipidemia. Continue Lipitor. Further recommendations based on clinical course. Plan of care discussed with Dr. Campoverde Subjective 24 Hr Interval Summary Cardiovascular: no complaints Gastrointestinal: no complaints Genitourinary: no complaints Musculoskeletal: no complaints Skin: no complaints Exam/Review of Systems Vital Signs Vitals Vital Signs Date Time Temp Pulse Resp B/P Pulse Ox O2 Delivery O2 Flow Rate FiO2 09/17/16 12:20 98 09/17/16 04:32 97.9 16 95/59 95 09/16/16 19:14 Room Air Intake and Output 09/16/16 09/16/16 09/17/16 14:59 22:59 06:59 Intake Total 750 ml 400 ml Output Total 3 ml Balance 747 ml 400 ml Exam Constitutional: alert, oriented Respiratory: clear to auscultation, normal air movement Cardiovascular: nl pulses, other (afib with RVR) Gastrointestinal: non-tender, soft Musculoskeletal: nl extremities to inspection Extremities: normal pulses Neurological: nl mental status, nl speech Results Result Diagram: 09/17/16 0656 09/17/16 0656 Results 24 hrs Laboratory Tests Test 09/16/16 17:44 09/16/16 21:00 09/17/16 06:56 09/17/16 09:00 Bedside Glucose 147 168 161 White Blood Count 11.2 H Red Blood Count 5.00 Hemoglobin 15.1 Hematocrit 46.0 Mean Corpuscular Volume 92.0 Mean Corpuscular Hemoglobin 30.2 Mean Corpuscular Hemoglobin Concent 32.8 Red Cell Distribution Width 13.2 Platelet Count 306 Mean Platelet Volume 9.7 Neutrophils % 60.9 Lymphocytes % 27.4 Monocytes % 7.9 Eosinophils % 2.7 Basophils % 0.8 Nucleated Red Blood Cells % 0.0 Neutrophils # 6.8 Lymphocytes # 3.1 H Monocytes # 0.9 Eosinophils # 0.3 Basophils # 0.1 Nucleated Red Blood Cells # 0.0 Sodium Level 142 Potassium Level 4.1 Chloride Level 96 L Carbon Dioxide Level 30 Anion Gap 20 H Blood Urea Nitrogen 20 Creatinine 0.78 Glucose Level 148 Calcium Level 9.8 Test 09/17/16 12:42 Bedside Glucose 128 Medications Medications Current Medications Metoprolol Tartrate (Lopressor) 5 mg Q4H PRN IV HR>110 Hold SBP<100 Last administered on 09/13/16 15:32; Admin Dose 5 MG; Start 09/12/16 at 19:30 Digoxin (Digoxin) 0.125 mg DAILY@13 PO Last administered on 09/17/16 12:59; Admin Dose 0.125 MG; Start 09/13/16 at 13:00 Diagnostic Test (Pha) (Accu-Chek) 1 ea 02 XX Last administered on 09/13/16 01: 39; Admin Dose 1 EA; Start 09/13/16 at 02:00 Acetaminophen (Tylenol Tab) 500 mg Q6 PRN PO pain Last administered on 20:54; Admin Dose 500 MG; Start 09/12/16 at 23:30 Apixaban (Eliquis) 2.5 mg BID PO Last administered on 09/17/16 09:15; Admin Dose 2.5 MG; Start 09/13/16 at 00:00 Miscellaneous Information 1 ea NOTE XX ; Start 09/12/16 at 23:45 Glucose (Glutose) 15 gm Q15M PRN PO DECREASED GLUCOSE; Start 09/12/16 at 23:45 Glucose (Glutose) 22.5 gm Q15M PRN PO DECREASED GLUCOSE; Start 09/12/16 at 23: 45 Dextrose (D50w Syringe) 25 ml Q15M PRN IV DECREASED GLUCOSE; Start 09/12/16 at 23:45 Dextrose (D50w Syringe) 50 ml Q15M PRN IV DECREASED GLUCOSE; Start 09/12/16 at 23:45 Glucagon (Glucagen) 1 mg Q15M PRN IM DECREASED GLUCOSE; Start 09/12/16 at 23:45 Glucose (Glutose) 15 gm Q15M PRN BUCCAL DECREASED GLUCOSE; Start 09/12/16 at 23 :45 Linagliptin (Tradjenta) 5 mg DAILY PO Last administered on 09/17/16 09:15; Admin Dose 5 MG; Start 09/13/16 at 09:00 Atorvastatin Calcium (Lipitor) 10 mg HS PO Last administered on 09/16/16 20:56 ; Admin Dose 10 MG; Start 09/13/16 at 21:00 Furosemide (Lasix) 20 mg DAILY IV Last administered on 09/14/16 09:24; Admin Dose 20 MG; Start 09/13/16 at 13:30; Status Future Hold Losartan Potassium (Cozaar) 12.5 mg DAILY PO Last administered on 09/15/16 08: 31; Admin Dose 12.5 MG; Start 09/14/16 at 09:00 Insulin Glargine (Lantus) 30 unit DAILY@08 SC Last administered on 09/17/16 09 :03; Admin Dose 30 UNIT; Start 09/14/16 at 08:00 Atenolol (Tenormin) 12.5 mg BID PO Last administered on 09/16/16 20:56; Admin Dose 12.5 MG; Start 09/14/16 at 21:00 GOPI MCFADDEN Sep 17, 2016 15:35
[2016-09-17] MEDS: ATORVASTATIN 10 MG TAB PO SCH (20:44)
[2016-09-18] VITALS (11 sets, daily range): BP systolic 90–125; BP diastolic 56–75; PULSE 68–105; RESP 16
[2016-09-18] MEDS: ACCU-CHEK XX SCH (01:50)
[2016-09-18] MEDS: INSULIN ASPART [NOVOLOG] 3 ML PEN SC SCH ×7 (08:00→21:00)
[2016-09-18 08:04] LABS: BASOPHIL # 0.1 10^3/ul (0.0-0.1); BASOPHILS % 0.6 % (0.0-2.0); EOSINOPHILS # 0.3 10^3/ul (0.0-0.5); EOSINOPHILS % 2.6 % (0.0-7.0); HEMATOCRIT 44.6 % (37.0-47.0); LYMPHOCYTES # 3.4 10^3/ul (0.8-2.9); LYMPHOCYTES % 31.1 % (15.0-51.0); MEAN CORPUSCULAR HEMOGLOBIN 30.8 pg (29.0-33.0); MEAN CORPUSCULAR HGB CONC 33.6 g/dl (32.0-37.0); MEAN CORPUSCULAR VOLUME 91.6 fl (82.0-101.0); MEAN PLATELET VOLUME 9.4 fl (7.4-10.4); MONOCYTE # 0.9 10^3/ul (0.3-0.9); MONOCYTES % 8.6 % (0.0-11.0); NEUTROPHIL # 6.2 10^3/ul (1.6-7.5); NEUTROPHILS % 56.8 % (39.0-77.0); PLATELET COUNT 297 10^3/UL (140-415); RED BLOOD COUNT 4.87 10^6/ul (4.20-5.40); RED CELL DISTRIBUTION WIDTH 12.8 % (11.5-14.5); WHITE BLOOD COUNT 10.9 10^3/ul (4.8-10.8)
[2016-09-18] MEDS: ATENOLOL 25 MG TAB PO SCH ×2 (08:13→21:12)
[2016-09-18] MEDS: LOSARTAN 25 MG TAB PO SCH (08:13)
[2016-09-18] MEDS: APIXABAN 5 MG TABLET PO SCH ×2 (08:16→21:12)
[2016-09-18] MEDS: LINAGLIPTIN 5 MG TABLET PO SCH (08:16)
[2016-09-18] MEDS: INSULIN GLARGINE [LANtus] 3 ML PEN SC SCH (08:19)
[2016-09-18 08:37] LABS: CALCIUM 9.8 mg/dl (8.4-10.2); CREATININE 0.72 mg/dl (0.44-1.00); POTASSIUM 4.2 mmol/L (3.5-5.1)
[2016-09-18] MEDS: DIGOXIN 0.125 MG TAB PO SCH (12:21)
--- NOTE | 2016-09-18 13:16 | CONS ---
Date/Time of Note Date/Time of Note DATE: 09/18/16 TIME: 13:14 Assessment/Plan Assessment/Plan Additional Assessment/Plan Atrial fibrillation with RVR Cardiomyopathy Hypertension Diabetes Dyslipidemia Continue atenolol and digoxin Continue Eliquis Continue Losartan Continue Insulin Continue Lipitor Consultation Date/Type/Reason Admit Date/Time Sep 12, 2016 at 18:08 Initial Consult Date Type of Consultation: cardiology Referring Provider: NIGHAT HALE MD Exam/Review of Systems Vital Signs Vitals Vital Signs Date Time Temp Pulse Resp B/P Pulse Ox O2 Delivery O2 Flow Rate FiO2 09/18/16 12:25 91 09/18/16 12:00 97.4 102/56 98 Room Air 09/18/16 04:56 16 Intake and Output 09/17/16 09/17/16 09/18/16 15:00 23:00 07:00 Intake Total 500 ml Balance 500 ml Exam Constitutional: alert Head: atraumatic, normocephalic Respiratory: clear to auscultation Cardiovascular: irregular rhythm Gastrointestinal: nl liver, spleen, non-tender, soft Extremities: normal pulses Results Result Diagram: 09/18/16 0716 09/18/16 0716 Results 24 hrs Laboratory Tests Test 09/17/16 17:48 09/17/16 20:30 09/18/16 07:16 09/18/16 08:03 Bedside Glucose 154 207 120 White Blood Count 10.9 H Red Blood Count 4.87 Hemoglobin 15.0 Hematocrit 44.6 Mean Corpuscular Volume 91.6 Mean Corpuscular Hemoglobin 30.8 Mean Corpuscular Hemoglobin Concent 33.6 Red Cell Distribution Width 12.8 Platelet Count 297 Mean Platelet Volume 9.4 Neutrophils % 56.8 Lymphocytes % 31.1 Monocytes % 8.6 Eosinophils % 2.6 Basophils % 0.6 Nucleated Red Blood Cells % 0.0 Neutrophils # 6.2 Lymphocytes # 3.4 H Monocytes # 0.9 Eosinophils # 0.3 Basophils # 0.1 Nucleated Red Blood Cells # 0.0 Sodium Level 142 Potassium Level 4.2 Chloride Level 96 L Carbon Dioxide Level 29 Anion Gap 21 H Blood Urea Nitrogen 21 H Creatinine 0.72 Glucose Level 126 Calcium Level 9.8 Test 09/18/16 11:48 Bedside Glucose 145 Medications Medications Current Medications Metoprolol Tartrate (Lopressor) 5 mg Q4H PRN IV HR>110 Hold SBP<100 Last administered on 09/13/16 15:32; Admin Dose 5 MG; Start 09/12/16 at 19:30 Digoxin (Digoxin) 0.125 mg DAILY@13 PO Last administered on 09/18/16 12:21; Admin Dose 0.125 MG; Start 09/13/16 at 13:00 Diagnostic Test (Pha) (Accu-Chek) 1 ea 02 XX Last administered on 09/13/16 01: 39; Admin Dose 1 EA; Start 09/13/16 at 02:00 Acetaminophen (Tylenol Tab) 500 mg Q6 PRN PO pain Last administered on 20:54; Admin Dose 500 MG; Start 09/12/16 at 23:30 Apixaban (Eliquis) 2.5 mg BID PO Last administered on 09/18/16 08:16; Admin Dose 2.5 MG; Start 09/13/16 at 00:00 Miscellaneous Information 1 ea NOTE XX ; Start 09/12/16 at 23:45 Glucose (Glutose) 15 gm Q15M PRN PO DECREASED GLUCOSE; Start 09/12/16 at 23:45 Glucose (Glutose) 22.5 gm Q15M PRN PO DECREASED GLUCOSE; Start 09/12/16 at 23: 45 Dextrose (D50w Syringe) 25 ml Q15M PRN IV DECREASED GLUCOSE; Start 09/12/16 at 23:45 Dextrose (D50w Syringe) 50 ml Q15M PRN IV DECREASED GLUCOSE; Start 09/12/16 at 23:45 Glucagon (Glucagen) 1 mg Q15M PRN IM DECREASED GLUCOSE; Start 09/12/16 at 23:45 Glucose (Glutose) 15 gm Q15M PRN BUCCAL DECREASED GLUCOSE; Start 09/12/16 at 23 :45 Linagliptin (Tradjenta) 5 mg DAILY PO Last administered on 09/18/16 08:16; Admin Dose 5 MG; Start 09/13/16 at 09:00 Atorvastatin Calcium (Lipitor) 10 mg HS PO Last administered on 09/17/16 20:44 ; Admin Dose 10 MG; Start 09/13/16 at 21:00 Furosemide (Lasix) 20 mg DAILY IV Last administered on 09/14/16 09:24; Admin Dose 20 MG; Start 09/13/16 at 13:30; Status Future Hold Losartan Potassium (Cozaar) 12.5 mg DAILY PO Last administered on 09/15/16 08: 31; Admin Dose 12.5 MG; Start 09/14/16 at 09:00 Insulin Glargine (Lantus) 30 unit DAILY@08 SC Last administered on 09/18/16 08 :19; Admin Dose 30 UNIT; Start 09/14/16 at 08:00 Atenolol (Tenormin) 12.5 mg BID PO Last administered on 09/17/16 20:45; Admin Dose 12.5 MG; Start 09/14/16 at 21:00 THERESA DENTON M.D. Sep 18, 2016 13:16
--- NOTE | 2016-09-18 13:20 | PN ---
Date/Time of Note Date/Time of Note DATE: 09/18/16 TIME: 13:16 Assessment/Plan Lines/Catheters IV C[facility]ter Type (from [facility]): Saline Lock Urinary Cath still in place: No Assessment/Plan Assessment/Plan -Acute coronary syndrome ruled out, Lexiscan with no ischemia. Dr. Desai is following and cardiology consultation. - Atrial fibrillation with rapid ventricular response. Continue Eliquis digoxin and metoprolol. Continue telemetry monitoring. - Cardiomyopathy with ejection fraction of 35% - Hypertension. - Poorly controlled diabetes mellitus. Hemoglobin A1c is 11.4. Continue Tradjenta, Lantus, pre-meal NovoLog as well as NovoLog per mild algorithm sliding scale. - Dyslipidemia. Continue Lipitor. Further recommendations based on clinical course. Plan of care discussed with Dr. Campoverde Subjective 24 Hr Interval Summary Free Text/Dictation Patient's continues in atrial fibrillation rate -99, continue to monitor on telemetry floor. Patient still has a fluctuation in blood sugar, continue to monitor.dw staff ENT: no complaints Respiratory: no complaints Cardiovascular: no complaints Gastrointestinal: no complaints Genitourinary: no complaints Musculoskeletal: no complaints Exam/Review of Systems Vital Signs Vitals Vital Signs Date Time Temp Pulse Resp B/P Pulse Ox O2 Delivery O2 Flow Rate FiO2 09/18/16 12:25 91 09/18/16 12:00 97.4 102/56 98 Room Air 09/18/16 04:56 16 Intake and Output 09/17/16 09/17/16 09/18/16 15:00 23:00 07:00 Intake Total 500 ml Balance 500 ml Exam Constitutional: alert, well developed Respiratory: clear to auscultation, normal air movement Cardiovascular: nl pulses, other (afib in HR 99) Gastrointestinal: non-tender, soft Musculoskeletal: nl extremities to inspection Extremities: normal pulses Neurological: nl mental status, nl speech Results Result Diagram: 09/18/16 0716 09/18/16 0716 Results 24 hrs Laboratory Tests Test 09/17/16 17:48 09/17/16 20:30 09/18/16 07:16 09/18/16 08:03 Bedside Glucose 154 207 120 White Blood Count 10.9 H Red Blood Count 4.87 Hemoglobin 15.0 Hematocrit 44.6 Mean Corpuscular Volume 91.6 Mean Corpuscular Hemoglobin 30.8 Mean Corpuscular Hemoglobin Concent 33.6 Red Cell Distribution Width 12.8 Platelet Count 297 Mean Platelet Volume 9.4 Neutrophils % 56.8 Lymphocytes % 31.1 Monocytes % 8.6 Eosinophils % 2.6 Basophils % 0.6 Nucleated Red Blood Cells % 0.0 Neutrophils # 6.2 Lymphocytes # 3.4 H Monocytes # 0.9 Eosinophils # 0.3 Basophils # 0.1 Nucleated Red Blood Cells # 0.0 Sodium Level 142 Potassium Level 4.2 Chloride Level 96 L Carbon Dioxide Level 29 Anion Gap 21 H Blood Urea Nitrogen 21 H Creatinine 0.72 Glucose Level 126 Calcium Level 9.8 Test 09/18/16 11:48 Bedside Glucose 145 Medications Medications Current Medications Metoprolol Tartrate (Lopressor) 5 mg Q4H PRN IV HR>110 Hold SBP<100 Last administered on 09/13/16 15:32; Admin Dose 5 MG; Start 09/12/16 at 19:30 Digoxin (Digoxin) 0.125 mg DAILY@13 PO Last administered on 09/18/16 12:21; Admin Dose 0.125 MG; Start 09/13/16 at 13:00 Diagnostic Test (Pha) (Accu-Chek) 1 ea 02 XX Last administered on 09/13/16 01: 39; Admin Dose 1 EA; Start 09/13/16 at 02:00 Acetaminophen (Tylenol Tab) 500 mg Q6 PRN PO pain Last administered on 20:54; Admin Dose 500 MG; Start 09/12/16 at 23:30 Apixaban (Eliquis) 2.5 mg BID PO Last administered on 09/18/16 08:16; Admin Dose 2.5 MG; Start 09/13/16 at 00:00 Miscellaneous Information 1 ea NOTE XX ; Start 09/12/16 at 23:45 Glucose (Glutose) 15 gm Q15M PRN PO DECREASED GLUCOSE; Start 09/12/16 at 23:45 Glucose (Glutose) 22.5 gm Q15M PRN PO DECREASED GLUCOSE; Start 09/12/16 at 23: 45 Dextrose (D50w Syringe) 25 ml Q15M PRN IV DECREASED GLUCOSE; Start 09/12/16 at 23:45 Dextrose (D50w Syringe) 50 ml Q15M PRN IV DECREASED GLUCOSE; Start 09/12/16 at 23:45 Glucagon (Glucagen) 1 mg Q15M PRN IM DECREASED GLUCOSE; Start 09/12/16 at 23:45 Glucose (Glutose) 15 gm Q15M PRN BUCCAL DECREASED GLUCOSE; Start 09/12/16 at 23 :45 Linagliptin (Tradjenta) 5 mg DAILY PO Last administered on 09/18/16 08:16; Admin Dose 5 MG; Start 09/13/16 at 09:00 Atorvastatin Calcium (Lipitor) 10 mg HS PO Last administered on 09/17/16 20:44 ; Admin Dose 10 MG; Start 09/13/16 at 21:00 Furosemide (Lasix) 20 mg DAILY IV Last administered on 09/14/16 09:24; Admin Dose 20 MG; Start 09/13/16 at 13:30; Status Future Hold Losartan Potassium (Cozaar) 12.5 mg DAILY PO Last administered on 09/15/16 08: 31; Admin Dose 12.5 MG; Start 09/14/16 at 09:00 Insulin Glargine (Lantus) 30 unit DAILY@08 SC Last administered on 09/18/16 08 :19; Admin Dose 30 UNIT; Start 09/14/16 at 08:00 Atenolol (Tenormin) 12.5 mg BID PO Last administered on 09/17/16 20:45; Admin Dose 12.5 MG; Start 09/14/16 at 21:00 GOPI MCFADDEN Sep 18, 2016 13:20
[2016-09-18] MEDS: ATORVASTATIN 10 MG TAB PO SCH (21:11)
[2016-09-19] VITALS (11 sets, daily range): BP systolic 109–144; BP diastolic 57–69; PULSE 68–95; RESP 16–18
[2016-09-19] MEDS: ACCU-CHEK XX SCH (02:00)
[2016-09-19 07:30] LABS: BASOPHIL # 0.1 10^3/ul (0.0-0.1); BASOPHILS % 0.7 % (0.0-2.0); EOSINOPHILS # 0.2 10^3/ul (0.0-0.5); EOSINOPHILS % 2.1 % (0.0-7.0); HEMATOCRIT 46.2 % (37.0-47.0); HEMOGLOBIN 15.2 g/dl (12.0-16.0); LYMPHOCYTES # 3.2 10^3/ul (0.8-2.9); LYMPHOCYTES % 29.6 % (15.0-51.0); MEAN CORPUSCULAR HEMOGLOBIN 30.3 pg (29.0-33.0); MEAN CORPUSCULAR HGB CONC 32.9 g/dl (32.0-37.0); MEAN CORPUSCULAR VOLUME 92.2 fl (82.0-101.0); MEAN PLATELET VOLUME 9.4 fl (7.4-10.4); MONOCYTE # 0.9 10^3/ul (0.3-0.9); MONOCYTES % 7.9 % (0.0-11.0); NEUTROPHIL # 6.4 10^3/ul (1.6-7.5); NEUTROPHILS % 59.2 % (39.0-77.0); PLATELET COUNT 303 10^3/UL (140-415); RED BLOOD COUNT 5.01 10^6/ul (4.20-5.40); RED CELL DISTRIBUTION WIDTH 12.7 % (11.5-14.5); WHITE BLOOD COUNT 10.7 10^3/ul (4.8-10.8)
[2016-09-19 07:55] LABS: CALCIUM 9.5 mg/dl (8.4-10.2); CREATININE 0.73 mg/dl (0.44-1.00); POTASSIUM 4.1 mmol/L (3.5-5.1)
[2016-09-19] MEDS: LINAGLIPTIN 5 MG TABLET PO SCH (08:36)
[2016-09-19] MEDS: LOSARTAN 25 MG TAB PO SCH (08:37)
[2016-09-19] MEDS: APIXABAN 5 MG TABLET PO SCH (08:37)
[2016-09-19] MEDS: ATENOLOL 25 MG TAB PO SCH (08:37)
[2016-09-19] MEDS: INSULIN GLARGINE [LANtus] 3 ML PEN SC SCH (08:38)
[2016-09-19] MEDS: INSULIN ASPART [NOVOLOG] 3 ML PEN SC SCH ×6 (08:39→17:18)
[2016-09-19] MEDS: DIGOXIN 0.125 MG TAB PO SCH (12:34)
--- NOTE | 2016-09-19 14:02 | CONS ---
Date/Time of Note Date/Time of Note DATE: 09/19/16 TIME: 14:01 Assessment/Plan Assessment/Plan Chief Complaint/Hosp Course IMP: 1.AF- with some recurrent RVR when BB is held. 2.abnl ecg-negative trop x 3 3.sob 4.DM with hyperglycemia 5.HTN-currently labile with episodes of boderline hotn 6.HL 7.Cardiomyopathy with low ef by echo this admit Recc: -Tele -serial ecg's -Continue BB as tolerated only -Contnue po digoxin -Hold lasix and follow volume status given low BP -losartan as tolerted only -ongoing adjustment of insulin therapy -Continue eliqus -D/C planning Problems: Consultation Date/Type/Reason Admit Date/Time Sep 12, 2016 at 18:08 Initial Consult Date 09/12/2016 Type of Consultation: cardiology Reason for Consultation AF Referring Provider: NIGHAT HALE MD Exam/Review of Systems Vital Signs Vitals Vital Signs Date Time Temp Pulse Resp B/P Pulse Ox O2 Delivery O2 Flow Rate FiO2 09/19/16 12:13 72 09/19/16 11:59 98.1 17 109/57 97 09/19/16 00:00 Non Rebreather 15.0 Intake and Output 09/18/16 09/18/16 09/19/16 15:00 23:00 07:00 Intake Total 750 ml 400 ml Output Total 6 ml Balance 744 ml 400 ml Exam Review of Systems: CONSTITUTIONAL: No fevers, chills. PULMONARY: No sob CARDIOVASCULAR: No chest pain/palpitations GASTROINTESTINAL: No nausea/vomiting. GENITOURINARY: No hematuria/dysuria. MUSCULOSKELETAL: No myagias/arthalgias. PSYCHIATRIC: The patient denies depression. NEUROLOGIC: No weakness Constitutional: alert Psych: no complaints Head: normocephalic ENMT: mucosa pink and moist Neck: jvd (8 cm water), supple Respiratory: clear to auscultation Cardiovascular: irregular rhythm Gastrointestinal: non-tender, soft Musculoskeletal: muscle tone (normal) Extremities: edema (none) Neurological: other (No focal deficits) Results Result Diagram: 09/19/16 0700 09/19/16 0700 Results 24 hrs Laboratory Tests Test 09/18/16 17:45 09/18/16 21:09 09/19/16 07:00 09/19/16 08:29 Bedside Glucose 164 171 163 White Blood Count 10.7 Red Blood Count 5.01 Hemoglobin 15.2 Hematocrit 46.2 Mean Corpuscular Volume 92.2 Mean Corpuscular Hemoglobin 30.3 Mean Corpuscular Hemoglobin Concent 32.9 Red Cell Distribution Width 12.7 Platelet Count 303 Mean Platelet Volume 9.4 Neutrophils % 59.2 Lymphocytes % 29.6 Monocytes % 7.9 Eosinophils % 2.1 Basophils % 0.7 Nucleated Red Blood Cells % 0.0 Neutrophils # 6.4 Lymphocytes # 3.2 H Monocytes # 0.9 Eosinophils # 0.2 Basophils # 0.1 Nucleated Red Blood Cells # 0.0 Sodium Level 142 Potassium Level 4.1 Chloride Level 96 L Carbon Dioxide Level 32 H Anion Gap 18 H Blood Urea Nitrogen 18 Creatinine 0.73 Glucose Level 162 Calcium Level 9.5 Test 09/19/16 12:26 Bedside Glucose 139 Medications Medications Current Medications Metoprolol Tartrate (Lopressor) 5 mg Q4H PRN IV HR>110 Hold SBP<100 Last administered on 09/13/16 15:32; Admin Dose 5 MG; Start 09/12/16 at 19:30 Digoxin (Digoxin) 0.125 mg DAILY@13 PO Last administered on 09/19/16 12:34; Admin Dose 0.125 MG; Start 09/13/16 at 13:00 Diagnostic Test (Pha) (Accu-Chek) 1 ea 02 XX Last administered on 09/13/16 01: 39; Admin Dose 1 EA; Start 09/13/16 at 02:00 Acetaminophen (Tylenol Tab) 500 mg Q6 PRN PO pain Last administered on 20:54; Admin Dose 500 MG; Start 09/12/16 at 23:30 Apixaban (Eliquis) 2.5 mg BID PO Last administered on 09/19/16 08:37; Admin Dose 2.5 MG; Start 09/13/16 at 00:00 Miscellaneous Information 1 ea NOTE XX ; Start 09/12/16 at 23:45 Glucose (Glutose) 15 gm Q15M PRN PO DECREASED GLUCOSE; Start 09/12/16 at 23:45 Glucose (Glutose) 22.5 gm Q15M PRN PO DECREASED GLUCOSE; Start 09/12/16 at 23: 45 Dextrose (D50w Syringe) 25 ml Q15M PRN IV DECREASED GLUCOSE; Start 09/12/16 at 23:45 Dextrose (D50w Syringe) 50 ml Q15M PRN IV DECREASED GLUCOSE; Start 09/12/16 at 23:45 Glucagon (Glucagen) 1 mg Q15M PRN IM DECREASED GLUCOSE; Start 09/12/16 at 23:45 Glucose (Glutose) 15 gm Q15M PRN BUCCAL DECREASED GLUCOSE; Start 09/12/16 at 23 :45 Linagliptin (Tradjenta) 5 mg DAILY PO Last administered on 09/19/16 08:36; Admin Dose 5 MG; Start 09/13/16 at 09:00 Atorvastatin Calcium (Lipitor) 10 mg HS PO Last administered on 09/18/16 21:11 ; Admin Dose 10 MG; Start 09/13/16 at 21:00 Furosemide (Lasix) 20 mg DAILY IV Last administered on 09/14/16 09:24; Admin Dose 20 MG; Start 09/13/16 at 13:30; Status Future Hold Losartan Potassium (Cozaar) 12.5 mg DAILY PO Last administered on 09/19/16 08: 37; Admin Dose 12.5 MG; Start 09/14/16 at 09:00 Insulin Glargine (Lantus) 30 unit DAILY@08 SC Last administered on 09/19/16 08 :38; Admin Dose 30 UNIT; Start 09/14/16 at 08:00 Atenolol (Tenormin) 12.5 mg BID PO Last administered on 09/19/16 08:37; Admin Dose 12.5 MG; Start 09/14/16 at 21:00 CALISTA ORELLANA Sep 19, 2016 14:02
[2016-09-19] MEDS ORDERED: DIGO125T PO (17:24)
[2016-09-19] MEDS ORDERED: SITA100T8 PO (17:24)
[2016-09-19] MEDS ORDERED: NOVO3I SC (17:24)
[2016-09-19] MEDS ORDERED: APIX5TAB PO (17:24)
[2016-09-19] MEDS ORDERED: LOSA25TA2 PO (17:24)
[2016-09-19] MEDS ORDERED: ATOR10TA65 PO (17:24)
[2016-09-19] MEDS ORDERED: ATEN-51 PO (17:24)
[2016-09-19] MEDS ORDERED: LANT3I SC (17:24)
--- NOTE | 2016-09-20 18:01 | DS ---
Date/Time of Note Date/Time of Note DATE: 09/20/16 TIME: 17:58 Discharge Summary Admission/Discharge Info Admit Date/Time Sep 12, 2016 at 18:08 Discharge Date/Time Sep 19, 2016 at 18:50 Discharge Diagnosis -Acute coronary syndrome ruled out, - Atrial fibrillation with rapid ventricular response. - Cardiomyopathy with ejection fraction of 35% - Hypertension. - Poorly controlled diabetes mellitus. - Dyslipidemia. Patient Condition: Good Hx of Present Illness The patient is a 66-year-old female with history of cardiomyopathy with EF of 35-40 percent back in October 2013. The patient also history of chronic AFib, hypertension, diabetes, and dyslipidemia. The patient for the last couple of weeks has been experiencing increasing weakness and shortness of breath. Interestingly, daughter Nate reported that the symptoms were on and off but got worse in past 24 hours. The patient also noticed right leg edema. Denies any chest pain. The patient's blood sugars had also been running high and at home she reported the blood sugar was 466 and subsequently came down to 360. The patient did not have any polyuria or polydipsia. No reported headache or syncope. Patient did not have orthopnea, but did develop increasing shortness of breath with mild activities. The patient did not have any fever or chills, no paroxysmal nocturnal dyspnea, no vomiting or diarrhea. No report of bleeding of any site. The rest of the review of systems unremarkable. Hospital Course -Acute coronary syndrome ruled out, troponin is negative 3, Lexiscan with no ischemia. Dr. Desai is following and cardiology consultation. - Atrial fibrillation with rapid ventricular response. Continue Eliquis, digoxin and metoprolol. Patient was closely monitored on telemetry floor, medication was titrated by cardiology. - Cardiomyopathy with ejection fraction of 35% - Hypertension. - Poorly controlled diabetes mellitus. Hemoglobin A1c is 11.4. Continue Tradjenta, Lantus, pre-meal NovoLog as well as NovoLog per mild algorithm sliding scale. - Dyslipidemia. Continue Lipitor. Home Meds Active Scripts Losartan Potassium* (Cozaar*) 25 Mg Tablet, 12.5 MG PO DAILY for 30 Days, TAB Prov:RAMSEY EDEN 09/19/16 Insulin Glargine* (Lantus*) 100 Unit/Ml Soln, 30 UNIT SC DAILY@08 for 30 Days Prov:RAMSEY EDEN 09/19/16 Insulin Aspart* (Novolog Insulin Pen*) 100 Unit/Ml Soln, 6 UNIT SC WITH MEALS for 30 Days Prov:RAMSEY EDEN 09/19/16 Digoxin* (Digitek*) 125 Mcg Tablet, 0.125 MG PO DAILY@13 for 30 Days, TAB Prov:RAMSEY EDEN 09/19/16 Atorvastatin (Atorvastatin) 10 Mg Tablet, 10 MG PO HS for 30 Days, TAB Prov:RAMSEY EDEN 09/19/16 Atenolol* (Atenolol*) 25 Mg Tablet, 12.5 MG PO BID for 30 Days, TAB Prov:RAMSEY EDEN 09/19/16 Apixaban* (Eliquis*) 5 Mg Tablet, 2.5 MG PO BID for 30 Days, TAB Prov:RAMSEY EDEN 09/19/16 Sitagliptin* (Januvia*) 100 Mg Tablet, 100 MG PO DAILY, #30 TAB Prov:RAMSEY EDEN 09/19/16 Discontinued Reported Medications [Basaglar Insulin] No Conflict Check, 22 UNIT SQ QHS 09/12/16 Apixaban* (Eliquis*) 5 Mg Tablet, 5 MG PO DAILY, TAB 09/12/16 Carvedilol* (Carvedilol*) 3.125 Mg Tablet, 3.125 MG PO DAILY, #60 TAB 09/12/16 Losartan Potassium* (Losartan Potassium*) 25 Mg Tablet, 25 MG PO DAILY, TAB 09/12/16 Discontinued Scripts Digoxin* (Digoxin*) 0.125 Mg Tab, 0.125 MG PO DAILY@13 for 30 Days, TAB Prov:KATHERINE TERRY 11/12/13 Follow-up Plan Follow-up with PMD in 1-2 weeks Primary Care Provider [facility]ovanny V[facility] Time spent on discharge: > 30 minutes RAMSEY EDEN Sep 20, 2016 18:01
--- NOTE | 2016-09-23 07:20 | CONS ---
DATE OF ADMISSION: 09/12/2016 DATE OF CONSULTATION: REASON FOR CONSULTATION: Atrial fibrillation with rapid ventricular response, shortness of breath. REQUESTING PHYSICIAN: Dane Campoverde MD HISTORY OF PRESENT ILLNESS: Ms Ascencio is a 66-year-old female with a history of hypertension, diabetes mellitus, dyslipidemia, atrial fibrillation on Eliquis, who presented with complaints of weakness with associated shortness of breath. Upon arrival in the emergency department, temperature 97.2, blood pressure 140/102, pulse 131, respiratory rate 20, satting 98 percent. Patient's labs were notable for white cells 9.0, , platelet count of 254. Sodium 141, potassium 4.2. Creatinine 0.8, BUN 16. Troponin negative. BNP of 819. Glucose of 369. INR 1.1. UA negative. The patient underwent a chest x-ray revealing hyperexpanded lungs chronic, mild interstitial prominence of both lungs, atelectasis of bilateral lung lobes. The patient's electrocardiogram revealed atrial fibrillation at a rate of 123, normal axis, normal intervals. Also diffuse, nonspecific ST and T-wave abnormalities, borderline anterior . Patient was subsequently treated with diltiazem 20 mg IV push x1, metoprolol 5 mg IV push x1, and is awaiting admit to the floor on fluid hydration. Patient's most recent blood pressures have been somewhat marginal, 99 systolic, but heart rates are well controlled at 61 and 72. PAST MEDICAL HISTORY: As above in HPI. MEDICATIONS PRIOR TO ADMISSION: 1. Eliquis 5 mg daily. 2. Carvedilol 3.125 mg daily. 3. Digoxin 0.125 mg daily. 4. Cozaar 20 mg daily. 5. Januvia 100 mg daily. 6. Lantus. ALLERGIES: NO KNOWN DRUG ALLERGIES. SOCIAL HISTORY: No tobacco, ETOH, or illicit drug use. FAMILY HISTORY: Negative for sudden cardiac or early . REVIEW OF SYSTEMS: As above in HPI. CONSTITUTIONAL: No fevers, chills. PULMONARY: Shortness of breath. CARDIOVASCULAR: Atrial fibrillation. GASTROINTESTINAL: No vomiting. GENITOURINARY: No hematuria. MUSCULOSKELETAL: Degenerative joint disease. PSYCHIATRIC: Patient denies depression. NEUROLOGIC: No CVA. ENDOCRINE: Diabetes mellitus. PHYSICAL EXAMINATION: VITAL SIGNS: Temperature of 97.2, blood pressure most recent 99/82, pulse 72, respiratory rate 20, satting 100 percent. GENERAL: The patient is alert, awake, complaining of mild shortness of breath. NECK: JVP approximately 8-9 cm of water. CHEST: Fair movement throughout. HEART: Irregularly irregular. A 1/6 systolic murmur. Nondisplaced PMI. ABDOMEN: Positive bowel sounds. Soft. EXTREMITIES: No edema, 1+ pulses bilaterally, posterior tibial. LABORATORY: As above in HPI. No further labs were reviewed at this time. IMAGING STUDIES: As above in HPI. No new imaging studies were reviewed at this time. ECG as above HPI. No further electrocardiograms were reviewed at this time. IMPRESSION: 1. Atrial fibrillation with rapid ventricular response, currently under improved control status post IV push digoxin and diltiazem. 2. Abnormal electrocardiogram with nonspecific ST and T-wave abnormalities. Assess for acute coronary syndrome. 3. Shortness of breath. Assess for congestive heart failure with chest x-ray showing more chronic interstitial changes. Patient had elevated brain natriuretic peptide (BNP). 4. Diabetes mellitus with uncontrolled blood sugars. Hyperglycemia. 5. Hypertension with currently borderline hypotension. 6. Dyslipidemia. RECOMMENDATIONS: 1. At this time would admit patient to telemetry monitoring. 2. Follow rhythm and rate control closely. 3. Would initiate patient on baseline beta sd. Will change the patient's beta sd from carvedilol to metoprolol as patient's chest x-ray is somewhat concerning for possible change in condition with COPD and would not to provoke further bronchospasm. 4. Patient on IV fluid hydration at this time in the setting of hyperglycemia. Will follow volume status closely. 5. Check a 2-D echo for reassess patient's ejection fraction, wall motion, and any major valve abnormalities. It has been over 2 years since the last assessment. 6. Continue the patient's low-dose Losartan as tolerated. 7. Resume the patient's baseline digoxin and check a digoxin level. 8. Resume the patient's baseline Eliquis and will just check a TSH hyperthyroidism is not contributing to the patient's atrial fibrillation and will additionally check a fasting lipid panel for and initiate Lipitor if necessary. Thanks for allowing me to take part in the care of this patient. I will continue to follow along closely with you. patient's hospital course. Dictated By: Jeanine Boyce /joo/megan /Document#: [id number] CC: Dane Campoverde MD;*End*
== END 2016-09-19 18:50 | disposition home or self-care (01) | DRG 310 ==
LOC: E/R 15:43 → MS3 18:08 → MS4 09-13 17:12
PROVIDERS: ADMIT Internal Medicine; ATTEND Internal Medicine
DX: I48.2 Chronic atrial fibrillation (principal); I42.9 Cardiomyopathy, unspecified; E11.65 Type 2 diabetes mellitus with hyperglycemia; I10 Essential (primary) hypertension; E78.5 Hyperlipidemia, unspecified; E03.9 Hypothyroidism, unspecified; Z90.49 Acquired absence of other specified parts of digestive tract; Z79.01 Long term (current) use of anticoagulants; Z79.4 Long term (current) use of insulin
CPT/HCPCS: 36415; 71010; 78452; 80048; 80061; 80162; 81003; 82550; 82553; 82962; 83036; 83880; 84443; 84484; 85025; 85610; 85730; 93005; 93017; 93306; 96361; 96372; 96374; 96375; A9500; A9505; J1815; J1940; J2785; J7030; J7040